=== PATIENT | male | born 1955 | race Caucasian/White ===

== ENCOUNTER 2019-11-07 17:19 | Emergency (ER) | payer MEDICARE, OTHER, SELFPAY ==
[2019-11-07 17:30] VITALS: BP 162/70; PULSE 56; RESP 28; TEMP 34.9; O2SAT 97; BMI 32.8
--- NOTE | 2019-11-07 17:38 | DI.RAD.S_ITS ---
PROCEDURE: XR CHEST 1V INDICATIONS: shortness of breath TECHNIQUE: One view of the chest was acquired. COMPARISON: None. FINDINGS: Surgical changes and devices: None. Lungs and pleura: Lungs are clear. No pleural effusions or pneumothorax. Mediastinum: Mediastinal contours appear normal. Heart size is normal. Bones and chest wall: No suspicious bony lesions. Overlying soft tissues appear unremarkable. IMPRESSION: No evidence acute pulmonary process. Dictated by: Mars Jaramillo M.D. on 11/07/2019 at 20:08 Approved by: Mars Jaramillo M.D. on 11/07/2019 at 20:08
--- NOTE | 2019-11-07 18:17 | PC.NURSE ---
Addendum entered by Shannon Urias R.N. 11/07/19 19:06: worked out in the gymn, didnt eat, having early dinner the restaurant , sudden felt tired. Original Note: sudden onset of shaking, skin pale, confusion.
[2019-11-07 18:32] VITALS: BP 206/86; PULSE 81; RESP 28; TEMP 36.7; O2SAT 100
[2019-11-07 18:32] LABS: Add Manual Diff / Slide Review NO; Basophils Absolute Auto 0 /uL (0-100); Basophils Percent Auto 0.4 % (0-2); Eosinophils Absolute Auto 300 /uL (0-450); Eosinophils Percent Auto 2.7 % (2-4); Hematocrit 47.2 % (41-53); Hemoglobin 16.2 g/dL (13.5-17.5); Lymphocytes Absolute Auto 4400 /uL (1100-4500); Lymphocytes Percent Auto 42.7 % (25-40); Mean Corpuscular HGB Conc 34.3 % (30-36); Mean Corpuscular Hemoglobin 30.6 PG (26-34); Mean Corpuscular Volume 89.2 fL (80-100); Monocytes Absolute Auto 500 /uL (0-900); Monocytes Percent Auto 4.9 % (3-14); Neutrophils Absolute Auto 5100 /uL (1500-7000); Neutrophils Percent Auto 49.3 % (50-75); Platelet Count 143 X10^3/uL (150-400); Red Cell Distribution Width 14.5 % (11.6-14.8); White Blood Cell Count 10.3 X10^3/uL (4.5-11.0)
--- NOTE | 2019-11-07 18:38 | ED_ITS ---
HPI - General Adult General Chief complaint: Shortness of Breath/Dyspnea Stated complaint: shakey, tingly, faint, heart attack 6 months ago Time Seen by Provider: 11/07/19 18:36 Source: patient and family Mode of arrival: Wheelchair Limitations: no limitations History of Present Illness HPI narrative: This is a 64-year-old male comes to the emergency department with complaint of feeling shaky, pale and off. Patient was sitting down to dinner about 4:30 p.m. at a restaurant. He had not eaten yet. His last meal about 10:00 a.m. in the morning. Patient started feeling very shaky and did not feel well. He has described that he felt almost like he was really stone. He feels off. He feels cold. His family states that he was able to get up and walk out of the restaurant. He did have any syncope but they felt like he was not always alert. Patient denies any headache, he states maybe some mild chest pressure on repeated questioning, feels short of breath, he denies any nausea or vomiting. No issues with bowel movements or urination. He describes his weakness as all over. Denies any right or left-sided weakness. Family has not noted any facial droop. Patient does have a history of [place] and has had cardiac stents. He is on medication for blood pressure, cholesterol and spironolactone. Patient is on aspirin and Brilinta. Patient states he had a ulnar nerve surgery 15 years ago and ankle surgery but no other surgeries besides his cardiac stents. Patient and family state that there has been discussion about a pacemaker from a heart rate but his edge kitter has not felt that they should proceed at this time. Related Data Allergies Allergy/AdvReac Type Severity Reaction Status Date / Time No Known Drug Allergies Allergy Verified 11/07/19 17:38 Review of Systems Review of Systems ROS Unobtainable: All systems reviewed & are unremarkable except as noted in HPI and below Patient History Social History (Updated 11/07/19 @ 19:21 by Eloise Bcukley DO) household members: spouse Smoking Status: Never smoker substance use type: does not use Exam Narrative Exam Narrative: GEN: Obese male, alert and oriented x 3, patient appears to be in mild distress. HEENT: Atraumatic, pupils are equal round reactive to light, extraocular movements are intact, nares are clear. Throat is clear without any exudates, erythema, tonsillar enlargement or uvular deviation HEART: Regular rate and rhythm without murmur, clicks, rubs. LUNGS:Lungs clear to auscultation, no wheezes, rales, crackles, chest moves symmetrically ABD:bowel sounds normal, soft, non-tender, no guarding, rebound, rigidity, no masses noted, no hepatosplenomegaly :No CVA tenderness MSCL: Non-tender, no muscle atrophy, muscles strength 5/5 upper and lower extremities, full range of motion, gait not tested. NEURO:CN 2-12 intact, sensation normal, finger nose finger test normal, heel leon test normal, patient has mild generalized tremor on exam. SKIN: No rash, no petechiae. Initial Vital Signs Initial Vital Signs: Vital Signs Temperature 94.8 F L 11/07/19 17:30 Pulse Rate 56 L 11/07/19 17:30 Respiratory Rate 28 H 11/07/19 17:30 Blood Pressure 162/70 H 11/07/19 17:30 Pulse Oximetry 97 11/07/19 17:30 Scores GCS Leopoldo coma scale eye opening: Spontaneous [place] coma scale verbal response: Orientated Leopoldo coma scale motor response: Obey commands Leopoldo coma scale total score: 15 NIH Stroke Scale Level of Conciousness: Alert, keenly responsive Ask month/age: Answers both questions correctly. Open/close eyes, close hand: Performs both tasks correctly Best gaze horizontal: Normal Facial palsy: Normal symetrical movement Left arm drift: No drift for full 10 sec Right arm drift: No drift for full 10 sec Left leg drift: No drift for full 10 sec Right leg drift: No drift for full 10 sec Limb ataxia: Absent Sensory on face/arms/legs: Normal, no sensory loss Best language: No aphasia, normal Dysarthria: Normal Extinction or inattention: No abnormality Course Orders Ordered: ED Orders 11/07/19 19:13 CT head/brain wo con Stat 11/07/19 19:30 Procalcitonin Stat 11/07/19 19:34 EKG-12 Lead Stat 11/07/19 20:25 Blood Culture Stat Troponin & CK Cardiac Panel Stat 11/07/19 22:00 Urinalysis and Microscopic Stat Urine Drug Screen, Rapid Stat Discontinued Medications Sodium Chloride (Normal Saline 0.9%) 1,000 mls @ 1,000 mls/hr IV BOLUS ONE Stop: 11/07/19 19:57 Last Infusion: 11/07/19 20:22 Dose: 1,000 mls/hr Documented by: Admin: 11/07/19 19:00 Dose: 1,000 mls/hr Documented by: BONILLA Sodium Chloride (Normal Saline 0.9%) 1,000 mls @ 1,000 mls/hr IV BOLUS ONE Stop: 11/07/19 21:50 Last Infusion: 11/07/19 23:01 Dose: 1,000 mls/hr Documented by: Admin: 11/07/19 22:02 Dose: 1,000 mls/hr Documented by: BONILLA Nitroglycerin (Nitrostat) 0.4 mg SL [id number] PRN PRN Reason: Chest Pain Vital Signs Vital signs: Vital Signs - 8 hr 11/07/19 19:18 11/07/19 20:00 11/07/19 20:30 Pulse Rate 80 83 67 Respiratory Rate 21 22 17 Blood Pressure [Left Arm] 182/80 H 187/74 H 200/82 H Pulse Oximetry 100 100 100 11/07/19 21:22 Pulse Rate 62 Respiratory Rate 15 Blood Pressure [Left Arm] 186/77 H Pulse Oximetry 100 Medical Decision Making Lab Data Lab results reviewed: Yes I reviewed the patient's lab results. Result diagrams: 11/07/19 18:08 11/07/19 18:08 Labs: Lab Results 11/07/19 11/07/19 11/07/19 Range/Units 18:08 18:08 18:08 WBC 10.3 (4.5-11.0) X10^3/uL RBC 5.30 (4.5-5.9) X10^6/uL Hgb 16.2 (13.5-17.5) g/dL Hct 47.2 (41-53) % MCV 89.2 (80-100) fL MCH 30.6 (26-34) PG MCHC 34.3 (30-36) % RDW 14.5 (11.6-14.8) % Plt Count 143 L (150-400) X10^3/uL Neut % (Auto) 49.3 L (50-75) % Lymph % (Auto) 42.7 H (25-40) % [place] % (Auto) 4.9 (3-14) % Eos % (Auto) 2.7 (2-4) % Baso % (Auto) 0.4 (0-2) % Neut # (Auto) 5100 (7962-9749) /uL Lymph # (Auto) 4400 (8228-5602) /uL [place] # (Auto) 500 (0-900) /uL Eos # (Auto) 300 (0-450) /uL Baso # (Auto) 0 (0-100) /uL Sodium 138 (137-145) mmol/L Potassium 4.4 (3.4-5.1) mmol/L Chloride 99 (98-107) mmol/L Carbon Dioxide 22 (22-32) mmol/L BUN 25 H (9-20) mg/dL Creatinine 1.30 H (0.66-1.25) mg/dL Estimated GFR 55.4 L (>60) mL/min BUN/Creatinine Ratio 19.2 (6-22) Glucose 181 H (80-110) mg/dL Lactate 2.8 H (0.7-2.1) mmol/L Calcium 10.6 H (8.4-10.2) mg/dL Total Bilirubin 1.2 (0.2-1.3) mg/dL AST 33 (17-59) IU/L ALT 27 (<50) IU/L Alkaline Phosphatase 52 (38-126) U/L Total Creatine Kinase (55-170) U/L CK-MB (CK-2) (<2.37) ng/mL CK-MB (CK-2) Rel Index (1.5-5.0) % Troponin I (0.01-0.034) ng/mL Total Protein 9.8 H* (6.3-8.2) g/dL Albumin 5.7 H (3.5-5.0) g/dL Globulin 4.1 (1.7-4.1) g/dL Albumin/Globulin Ratio 1.4 (1.0-2.8) Procalcitonin (<0.5) ng/mL Urine Color Urine Appearance Urine pH (4.5-8.0) Ur Specific [place] (1.000-1.035) Urine Protein (Negative) Urine Glucose (UA) (Negative) g/dL Urine Ketones (NEGATIVE) Urine Occult Blood (Negative) Urine Nitrate (Negative) Urine Bilirubin (NEGATIVE) Urine Urobilinogen (0.2) E.U./dL Ur Leukocyte Esterase (NEGATIVE) Urine RBC (0-5/HPF) Urine WBC (0-5/HPF) Urine Bacteria (None) Ur Culture Indicated? Micro UA Comment U Opiates 300ng/mL cut (Negative) Ur Oxycodone Screen (Negative) Urine Methadone Screen (Negative) Ur Barbiturates Screen (Negative) U Tricyclic Antidepress (Negative) Ur Phencyclidine Scrn (Negative) Ur Amphetamines Screen (Negative) U Methamphetamines Scrn (Negative) Ur MDMA Scrn (Ecstasy) (Negative) U Benzodiazepines Scrn (Negative) Urine Cocaine Screen (Negative) U Marijuana (THC) Screen (Negative) Influenza A (RT-PCR) (NEGATIVE) Influenza B (RT-PCR) (NEGATIVE) 11/07/19 11/07/19 11/07/19 Range/Units 18:08 18:08 19:30 WBC (4.5-11.0) X10^3/uL RBC (4.5-5.9) X10^6/uL Hgb (13.5-17.5) g/dL Hct (41-53) % MCV (80-100) fL MCH (26-34) PG MCHC (30-36) % RDW (11.6-14.8) % Plt Count (150-400) X10^3/uL Neut % (Auto) (50-75) % Lymph % (Auto) (25-40) % [place] % (Auto) (3-14) % Eos % (Auto) (2-4) % Baso % (Auto) (0-2) % Neut # (Auto) (6526-3101) /uL Lymph # (Auto) (3587-7140) /uL [place] # (Auto) (0-900) /uL Eos # (Auto) (0-450) /uL Baso # (Auto) (0-100) /uL Sodium (137-145) mmol/L Potassium (3.4-5.1) mmol/L Chloride (98-107) mmol/L Carbon Dioxide (22-32) mmol/L BUN (9-20) mg/dL Creatinine (0.66-1.25) mg/dL Estimated GFR (>60) mL/min BUN/Creatinine Ratio (6-22) Glucose (80-110) mg/dL Lactate (0.7-2.1) mmol/L Calcium (8.4-10.2) mg/dL Total Bilirubin (0.2-1.3) mg/dL AST (17-59) IU/L ALT (<50) IU/L Alkaline Phosphatase (38-126) U/L Total Creatine Kinase 146 (55-170) U/L CK-MB (CK-2) 2.43 H (<2.37) ng/mL CK-MB (CK-2) Rel Index 1.7 (1.5-5.0) % Troponin I < 0.012 (0.01-0.034) ng/mL Total Protein (6.3-8.2) g/dL Albumin (3.5-5.0) g/dL Globulin (1.7-4.1) g/dL Albumin/Globulin Ratio (1.0-2.8) Procalcitonin < 0.05 (<0.5) ng/mL Urine Color Urine Appearance Urine pH (4.5-8.0) Ur Specific [place] (1.000-1.035) Urine Protein (Negative) Urine Glucose (UA) (Negative) g/dL Urine Ketones (NEGATIVE) Urine Occult Blood (Negative) Urine Nitrate (Negative) Urine Bilirubin (NEGATIVE) Urine Urobilinogen (0.2) E.U./dL Ur Leukocyte Esterase (NEGATIVE) Urine RBC (0-5/HPF) Urine WBC (0-5/HPF) Urine Bacteria (None) Ur Culture Indicated? Micro UA Comment U Opiates 300ng/mL cut (Negative) Ur Oxycodone Screen (Negative) Urine Methadone Screen (Negative) Ur Barbiturates Screen (Negative) U Tricyclic Antidepress (Negative) Ur Phencyclidine Scrn (Negative) Ur Amphetamines Screen (Negative) U Methamphetamines Scrn (Negative) Ur MDMA Scrn (Ecstasy) (Negative) U Benzodiazepines Scrn (Negative) Urine Cocaine Screen (Negative) U Marijuana (THC) Screen (Negative) Influenza A (RT-PCR) Flu a negative (NEGATIVE) Influenza B (RT-PCR) Flu b negative (NEGATIVE) 11/07/19 11/07/19 11/07/19 Range/Units 19:40 20:25 22:00 WBC (4.5-11.0) X10^3/uL RBC (4.5-5.9) X10^6/uL Hgb (13.5-17.5) g/dL Hct (41-53) % MCV (80-100) fL MCH (26-34) PG MCHC (30-36) % RDW (11.6-14.8) % Plt Count (150-400) X10^3/uL Neut % (Auto) (50-75) % Lymph % (Auto) (25-40) % [place] % (Auto) (3-14) % Eos % (Auto) (2-4) % Baso % (Auto) (0-2) % Neut # (Auto) (1638-6295) /uL Lymph # (Auto) (4043-1103) /uL [place] # (Auto) (0-900) /uL Eos # (Auto) (0-450) /uL Baso # (Auto) (0-100) /uL Sodium (137-145) mmol/L Potassium (3.4-5.1) mmol/L Chloride (98-107) mmol/L Carbon Dioxide (22-32) mmol/L BUN (9-20) mg/dL Creatinine (0.66-1.25) mg/dL Estimated GFR (>60) mL/min BUN/Creatinine Ratio (6-22) Glucose (80-110) mg/dL Lactate 2.7 H (0.7-2.1) mmol/L Calcium (8.4-10.2) mg/dL Total Bilirubin (0.2-1.3) mg/dL AST (17-59) IU/L ALT (<50) IU/L Alkaline Phosphatase (38-126) U/L Total Creatine Kinase 114 (55-170) U/L CK-MB (CK-2) 1.97 (<2.37) ng/mL CK-MB (CK-2) Rel Index 1.7 (1.5-5.0) % Troponin I 0.013 (0.01-0.034) ng/mL Total Protein (6.3-8.2) g/dL Albumin (3.5-5.0) g/dL Globulin (1.7-4.1) g/dL Albumin/Globulin Ratio (1.0-2.8) Procalcitonin (<0.5) ng/mL Urine Color Yellow Urine Appearance Clear Urine pH 6.0 (4.5-8.0) Ur Specific [place] 1.020 (1.000-1.035) Urine Protein Negative (Negative) Urine Glucose (UA) Negative (Negative) g/dL Urine Ketones Trace H (NEGATIVE) Urine Occult Blood Negative (Negative) Urine Nitrate Negative (Negative) Urine Bilirubin Negative (NEGATIVE) Urine Urobilinogen 0.2 (0.2) E.U./dL Ur Leukocyte Esterase Negative (NEGATIVE) Urine RBC None seen (0-5/HPF) Urine WBC None seen (0-5/HPF) Urine Bacteria None seen (None) Ur Culture Indicated? Cult not indicated Micro UA Comment Microscopic normal U Opiates 300ng/mL cut (Negative) Ur Oxycodone Screen (Negative) Urine Methadone Screen (Negative) Ur Barbiturates Screen (Negative) U Tricyclic Antidepress (Negative) Ur Phencyclidine Scrn (Negative) Ur Amphetamines Screen (Negative) U Methamphetamines Scrn (Negative) Ur MDMA Scrn (Ecstasy) (Negative) U Benzodiazepines Scrn (Negative) Urine Cocaine Screen (Negative) U Marijuana (THC) Screen (Negative) Influenza A (RT-PCR) (NEGATIVE) Influenza B (RT-PCR) (NEGATIVE) 11/07/19 Range/Units 22:00 WBC (4.5-11.0) X10^3/uL RBC (4.5-5.9) X10^6/uL Hgb (13.5-17.5) g/dL Hct (41-53) % MCV (80-100) fL MCH (26-34) PG MCHC (30-36) % RDW (11.6-14.8) % Plt Count (150-400) X10^3/uL Neut % (Auto) (50-75) % Lymph % (Auto) (25-40) % [place] % (Auto) (3-14) % Eos % (Auto) (2-4) % Baso % (Auto) (0-2) % Neut # (Auto) (4281-0976) /uL Lymph # (Auto) (1499-7373) /uL [place] # (Auto) (0-900) /uL Eos # (Auto) (0-450) /uL Baso # (Auto) (0-100) /uL Sodium (137-145) mmol/L Potassium (3.4-5.1) mmol/L Chloride (98-107) mmol/L Carbon Dioxide (22-32) mmol/L BUN (9-20) mg/dL Creatinine (0.66-1.25) mg/dL Estimated GFR (>60) mL/min BUN/Creatinine Ratio (6-22) Glucose (80-110) mg/dL Lactate (0.7-2.1) mmol/L Calcium (8.4-10.2) mg/dL Total Bilirubin (0.2-1.3) mg/dL AST (17-59) IU/L ALT (<50) IU/L Alkaline Phosphatase (38-126) U/L Total Creatine Kinase (55-170) U/L CK-MB (CK-2) (<2.37) ng/mL CK-MB (CK-2) Rel Index (1.5-5.0) % Troponin I (0.01-0.034) ng/mL Total Protein (6.3-8.2) g/dL Albumin (3.5-5.0) g/dL Globulin (1.7-4.1) g/dL Albumin/Globulin Ratio (1.0-2.8) Procalcitonin (<0.5) ng/mL Urine Color Urine Appearance Urine pH (4.5-8.0) Ur Specific [place] (1.000-1.035) Urine Protein (Negative) Urine Glucose (UA) (Negative) g/dL Urine Ketones (NEGATIVE) Urine Occult Blood (Negative) Urine Nitrate (Negative) Urine Bilirubin (NEGATIVE) Urine Urobilinogen (0.2) E.U./dL Ur Leukocyte Esterase (NEGATIVE) Urine RBC (0-5/HPF) Urine WBC (0-5/HPF) Urine Bacteria (None) Ur Culture Indicated? Micro UA Comment U Opiates 300ng/mL cut Negative (Negative) Ur Oxycodone Screen Negative (Negative) Urine Methadone Screen Negative (Negative) Ur Barbiturates Screen Negative (Negative) U Tricyclic Antidepress Negative (Negative) Ur Phencyclidine Scrn Negative (Negative) Ur Amphetamines Screen Negative (Negative) U Methamphetamines Scrn Negative (Negative) Ur MDMA Scrn (Ecstasy) Negative (Negative) U Benzodiazepines Scrn Negative (Negative) Urine Cocaine Screen Negative (Negative) U Marijuana (THC) Screen Positive H (Negative) Influenza A (RT-PCR) (NEGATIVE) Influenza B (RT-PCR) (NEGATIVE) Imaging Data Chest x-ray: Radiologist's Impression: [address] [address] XRay Report Signed Patient: Amber Oliva R#: [id number] : [id number] Age/Sex: 64 / MDate of Service: 11/07/19 Loc: ED Accession Number: [id number] Procedure: XR chest 1V Ordering Provider: Itz Sarmiento MD PROCEDURE: XR CHEST 1V INDICATIONS: shortness of breath TECHNIQUE: One view of the chest was acquired. COMPARISON: None. FINDINGS: Surgical changes and devices: None. Lungs and pleura: Lungs are clear. No pleural effusions or pneumothorax. Mediastinum: Mediastinal contours appear normal. Heart size is normal. Bones and chest wall: No suspicious bony lesions. Overlying soft tissues appear unremarkable. IMPRESSION: No evidence acute pulmonary process. Dictated by: Mars Jaramillo M.D. on 11/07/2019 at 20:08 Approved by: Mars Jaramillo M.D. on 11/07/2019 at 20:08 CT scan - head: Radiologist's Impression: [place] [address] CT Scan Report Signed Patient: Amber Oliva HMR#: [id number] : [id number] Age/Sex: 64 / MDate of Service: 11/07/19 Loc: ED Accession Number: [id number] Procedure: CT head/brain wo con Ordering Provider: Eloise Buckley D.O. PROCEDURE: CT HEAD/BRAIN WO CON INDICATIONS: feeling off, shaky and pale. No LOC TECHNIQUE: Noncontrast 4.5 mm thick angled axial sections acquired from the foramen magnum to the vertex, with coronal and sagittal reformats. For radiation dose reduction, the following was used: automated exposure control, adjustment of mA and/or kV according to patient size. COMPARISON: None. FINDINGS: Image quality: Excellent. CSF spaces: Basal cisterns are patent. No extra-axial fluid collections. Ventricles are normal in size and shape. Brain: No midline shift. No intracranial masses or hemorrhage. Dee-white matter interface is normal. Skull and face: Calvarium and visualized facial bones are intact, without suspicious lesions. Sinuses: Visualized sinuses and mastoids are clear. IMPRESSION: Unremarkable head CT. No evidence acute stroke, hemorrhage, or mass. Dictated by: Mars Jaramillo M.D. on 11/07/2019 at 20:18 Approved by: Mars Jaramillo M.D. on 11/07/2019 at 20:18 ECG Data Attestation: I personally reviewed and interpreted this ECG as follows: Prior ECG tracings: not available for review Interpretation: Sinus bradycardia rate of 57 P are 159 QRS of 152 and QTC of 482. Right bundle branch block. Patient has some mild motion artifact in [address] elevation appreciated. No prior EKGs available. EKG #2, sinus rhythma, RBBB. Heart rate is 82, J LUIS is 172 QRS is 153 and QTC is 491. No ST elevation appreciated. Patient has T-wave is inverted in V3 appears more flattened in V2 no other ST changes are appreciated. MDM Narrative Medical decision making narrative: Patient initially has non-focal exam. I nitial temperature was 94? F but this was temporal and not reconfirmed orally or rectally. Patient is shaky. He seems sort of slow in his answers. Family after patient was in the department for a period of time realized that they had edible brownies in the refrigerator and did ask the patient if he had had anything eat and he indicated that he had had 1. Patient's family states that these are quite strong. The patient does not normally partake of any marijuana and did not realize they were audible brownies. Urine drug testing is positive for THC. Head CT, chest x-ray and lab work showed elevated lactate which had minimally improved with fluids. After a 2nd L patient is feeling much better although he still feels ?stoned.? He is able to stand and ambulate and feels safe to return home. He did have 2 EKGs which showed change in V3 on repeat and repeat troponin which were negative. Urine was negative for infection. Platelets are 143. Patient has been hypertensive during his stay. We did discuss observation but patient and his family feel comfortable returning home at this time. We discussed a low threshold to return and strict return precautions. Discharge Plan Departure Patient Disposition: Home Clinical Impression: Marijuana intoxication Discharge Date/Time: 11/07/19 23:06 Activity Restrictions/Additional Instructions: Follow up with your physician for recheck. Avoid ingesting any edibles in the future unless intending to do so. Label edibles at home. Return to the ER for any fevers greater 100.4 F, new alterations in mental status, new chest pain, shortness of breath, lightheadedness, nausea or vomiting, new shortness of breath, passing out, weakness numbness or other new or concerning symptoms.
[2019-11-07 18:40] LABS: Alanine Aminotransferase 27 IU/L (<50); Albumin 5.7 g/dL (3.5-5.0); Albumin Globulin Ratio 1.4 (1.0-2.8); Alkaline Phosphatase 52 U/L (38-126); Aspartate Aminotransferase 33 IU/L (17-59); BUN Creatinine Ratio 19.2 (6-22); Bilirubin Total 1.2 mg/dL (0.2-1.3); Blood Urea Nitrogen 25 mg/dL (9-20); Calcium 10.6 mg/dL (8.4-10.2); Carbon Dioxide 22 mmol/L (22-32); Chloride 99 mmol/L (98-107); Estimated Glomerular Filt Rate 55.4 mL/min (>60); Globulin 4.1 g/dL (1.7-4.1); Glucose 181 mg/dL (80-110); HEMOLYSIS < 15 (0-50); Potassium 4.4 mmol/L (3.4-5.1); Sodium 138 mmol/L (137-145)
[2019-11-07 18:41] LABS: Lactate (Lactic Acid) 2.8 mmol/L (0.7-2.1)
[2019-11-07 18:44] LABS: Total Protein 9.8 g/dL (6.3-8.2)
[2019-11-07 18:56] LABS: Influenza A - CEPHEID Flu A NEGATIVE (NEGATIVE); Influenza B - CEPHEID Flu B NEGATIVE (NEGATIVE)
[2019-11-07] MEDS: SODIUM CHLORIDE 0.9% 1,000 ML 1000 ML IV ×2 (19:00→22:02)
[2019-11-07 19:11] LABS: Creatine Kinase 146 U/L (55-170)
--- NOTE | 2019-11-07 19:13 | DI.CT.S_ITS ---
PROCEDURE: CT HEAD/BRAIN WO CON INDICATIONS: feeling off, shaky and pale. No LOC TECHNIQUE: Noncontrast 4.5 mm thick angled axial sections acquired from the foramen magnum to the vertex, with coronal and sagittal reformats. For radiation dose reduction, the following was used: automated exposure control, adjustment of mA and/or kV according to patient size. COMPARISON: None. FINDINGS: Image quality: Excellent. CSF spaces: Basal cisterns are patent. No extra-axial fluid collections. Ventricles are normal in size and shape. Brain: No midline shift. No intracranial masses or hemorrhage. Dee-white matter interface is normal. Skull and face: Calvarium and visualized facial bones are intact, without suspicious lesions. Sinuses: Visualized sinuses and mastoids are clear. IMPRESSION: Unremarkable head CT. No evidence acute stroke, hemorrhage, or mass. Dictated by: Mars Jaramillo M.D. on 11/07/2019 at 20:18 Approved by: Mars Jaramillo M.D. on 11/07/2019 at 20:18
[2019-11-07 19:18] VITALS: BP 182/80; PULSE 80; RESP 21; O2SAT 100
[2019-11-07 19:24] LABS: Troponin I < 0.012 ng/mL (0.01-0.034)
[2019-11-07 19:26] LABS: CKMB % Relative Index 1.7 % (1.5-5.0); Creatine Kinase MB 2.43 ng/mL (<2.37)
[2019-11-07 20:00] VITALS: BP 187/74; PULSE 83; RESP 22; O2SAT 100
[2019-11-07 20:11] LABS: Procalcitonin < 0.05 ng/mL (<0.5)
[2019-11-07 20:21] LABS: Reflexed Lactate in 2 Hours Y
[2019-11-07 20:30] VITALS: BP 200/82; PULSE 67; RESP 17; O2SAT 100
[2019-11-07 20:32] LABS: Lactate 2HR (Lactic Acid Rflx) 2.7 mmol/L (0.7-2.1)
--- NOTE | 2019-11-07 20:36 | PC.NURSE ---
Pt states just realized that pt may have eaten a pot brownie that was in fridge, pt endorses eating a sweet in fridge but didn't realize it had pot in it. Pt states that was the pot brownie was the only sweet thing in fridge so pt must have eaten it. Pt states he does feel like he is stoned. Dr. Buckley updated.
[2019-11-07 20:43] LABS: Creatine Kinase 114 U/L (55-170)
[2019-11-07 20:56] LABS: Troponin I 0.013 ng/mL (0.01-0.034)
[2019-11-07 20:59] LABS: CKMB % Relative Index 1.7 % (1.5-5.0); Creatine Kinase MB 1.97 ng/mL (<2.37)
[2019-11-07 21:22] VITALS: BP 186/77; PULSE 62; RESP 15; O2SAT 100
[2019-11-07 22:07] LABS: Bacteria Urine None Seen; RBC Urine None Seen (0-5/HPF); WBC Urine None Seen (0-5/HPF)
[2019-11-07 22:10] LABS: Appearance Urine UA CLEAR; Bilirubin Urine UA NEGATIVE (NEGATIVE); Color Urine UA YELLOW; Glucose Urine UA NEGATIVE (Negative); Ketones Urine UA TRACE (NEGATIVE); Leukocyte Esterase Urine UA NEGATIVE (NEGATIVE); Nitrite Urine UA NEGATIVE (Negative); Occult Blood Urine UA NEGATIVE (Negative); Protein Urine UA NEGATIVE (Negative); Urobilinogen Urine UA 0.2 E.U./dL (0.2)
[2019-11-07 22:11] LABS: Culture Indicated Urine Cult Not Indicated; Urine Comments Microscopic Normal
[2019-11-07 22:12] LABS: UR Morphine/Opiate cutoff 300 Negative (Negative); Ur Creatinine Normal (Normal); Ur Specific Gravity Normal (Normal); Urine Amphetamines Negative (Negative); Urine Cocaine Negative (Negative); Urine Tetrahydrocannabinol Positive (Negative); Urine pH Normal (Normal)
[2019-11-07 22:13] LABS: Urine Barbiturates Negative (Negative); Urine Benzodiazepines Negative (Negative); Urine MDMA Negative (Negative); Urine Methadone Negative (Negative); Urine Methamphetamines Negative (Negative); Urine Oxycodone Negative (Negative); Urine Phencyclidine Negative (Negative); Urine Tricyclic Antidepressant Negative (Negative)
== END 2019-11-07 23:06 | disposition home or self-care (01) ==
PROVIDERS: Emergency Medicine; Emergency Provider Emergency Medicine
DX: F12.929 Cannabis use, unspecified with intoxication, unspecified (principal); R06.02 Shortness of breath; R00.1 Bradycardia, unspecified
CPT/HCPCS: 36415; 70450; 71045; 80053; 80305; 81001; 82550; 82553; 83605; 84145; 84484; 85025; 87040; 87502; 93005; 96360; 96361; 99285

== ENCOUNTER 2023-05-06 11:15 | Emergency (ER) | payer MEDICARE, OTHER, SELFPAY ==
[2023-05-06] VITALS (8 sets, daily range): BP systolic 158–201; BP diastolic 70–83; PULSE 45–67; RESP 12–19; TEMP 37; O2SAT 97–100; BMI 34.7
--- NOTE | 2023-05-06 11:26 | DI.US.S_ITS ---
PROCEDURE: US PERIPH VENOUS LOW EXTREM RT INDICATIONS: swelling R calf, no injury, sent for DVT TECHNIQUE: Real-time imaging, as well as color and pulse Doppler interrogation, were performed of the lower extremity deep veins from the inguinal ligament to the popliteal fossa. COMPARISON: None. FINDINGS: The common femoral, femoral and popliteal veins are normally compressible, and free of intraluminal thrombus. Color and pulse Doppler demonstrate normal phasic intraluminal flow. There is normal augmentation response to distal compression maneuver. IMPRESSION: No deep venous thrombosis in the visualized lower extremity. Dictated by: Gregorio Dean M.D. on 05/06/2023 at 12:24 Approved by: Gregorio Dean M.D. on 05/06/2023 at 12:24
--- NOTE | 2023-05-06 11:26 | ED.GENADULT ---
HPI - General Adult General Chief complaint: Neuro Symptoms/Deficit Stated complaint: poss stroke/blood clots in leg/ greyed vision RT Time Seen by Provider: 05/06/23 11:19 History of Present Illness HPI narrative: 67-year-old male nonsmoker with history of hypertension and hyperlipidemia presents with his in the chief complaint of right lower extremity swelling over the past week or 2. He states that he is had no trauma or injury, denies long distance travel or history of blood clot. He had been seen by his primary care provider yesterday who measured it as slightly greater than 2 cm larger circumference than the left side. There is no redness, warmth or red streaks. He has had no fever or chills. Denies chest pain or shortness of breath. He is had no cough. Furthermore, about 10 days ago he had a relatively brief episode in which the vision in his right eye became grade and has since completely resolved. He did have what sounds like floaters or flashers briefly while it was coming back to normal. He denies any other neurologic symptoms such as headache, double vision, trouble with speech or balance, no extremity numbness, tingling or weakness Related Data Home Medications Medication Instructions Recorded Confirmed aspirin 81 mg capsule 81 mg PO DAILY 05/06/23 05/06/23 empagliflozin 25 mg-linagliptin 5 1 tab PO DAILY 05/06/23 05/06/23 mg tablet (Glyxambi) losartan 25 mg tablet 25 mg PO BID 05/06/23 05/06/23 metformin 1,000 mg tablet 1,000 mg PO BID 05/06/23 05/06/23 nitroglycerin 0.4 mg sublingual 0.4 mg sublingual angina 05/06/23 tablet rosuvastatin 20 mg tablet 20 mg PO ONCE PM 05/06/23 05/06/23 Allergies Allergy/AdvReac Type Severity Reaction Status Date / Time No Known Drug Allergies Allergy Verified 05/06/23 11:31 Review of Systems Review of Systems Narrative: GENERAL: Denies chills, fatigue, malaise, fever, sweats. HEENT: Denies sinus pain, ear pain, sore throat, difficulty swallowing, dizziness. RESPIRATORY: Denies dyspnea, cough, wheezing, hemoptysis, sputum. CARDIOVASCULAR: Denies chest pain, palpitations, orthopnea, edema, GASTROINTESTINAL: Denies nausea, vomiting, abdominal pain, diarrhea, constipation, melena. : Denies dysuria, frequency, incontinence, hematuria, urinary retention. MUSCULOSKELETAL: See HPI SKIN: See HPI NEUROLOGIC: See HPI PSYCHIATRIC: No concerning psychosocial issues. 12 point review of systems is negative except for those stated above Patient History Social History household members: spouse Smoking Status: Never smoker substance use type: does not use Smoking Status: Never smoker Exam Narrative Exam Narrative: GENERAL: [67] year old patient appears stated age. Well-developed patient, in mild distress. HEAD: Atraumatic. Normocephalic. EYES: Pupils equal round and reactive. Extraocular motions intact. No scleral icterus. No injection or drainage. ENT: Nose without bleeding, purulent drainage. Throat without erythema, tonsillar hypertrophy or exudate. Airway patent. NECK: Trachea midline. Non tender CARDIOVASCULAR: Regular rate and rhythm without murmurs, gallops, or rubs. RESPIRATORY: Clear to auscultation. Breath sounds equal bilaterally. No wheezes, rales, or rhonchi. GASTROINTESTINAL: Abdomen soft, non-tender, nondistended. EXTREMITIES: Right lower extremity with mild calf swelling, no redness or warmth, no fluctuance or induration, no lymphangitis, no breaks in the skin BACK: Nontender without deformity or crepitance. No flank tenderness. NEURO: AOx3. SKIN: No rash or erythema of visible areas NIH Stroke Scale 1a. LOC: Patient is alert and keenly responsive (0) 1b. LOC Questions: Patient answers both LOC questions accurately (0) 1c. LOC Commands: Patient performs both tasks correctly (0) 2. Best Gaze: Normal (0) 3. Visual: No visual loss (0) 4. Facial palsy: Normal symmetrical movements (0) 5. Motor arm: No drift (0) 6. Motor leg: No drift (0) 7. Limb ataxia: Absent (0) 8. Sensory: Normal (0) 9. Best language: No aphasia; normal (0) 10. Dysarthria: Normal (0) 11. Extinction and inattention: No abnormality (0) NIHSS: 0 Initial Vital Signs Initial Vital Signs: Vital Signs Temperature 98.6 F 05/06/23 11:26 Pulse Rate 57 L 05/06/23 11:26 Respiratory Rate 16 05/06/23 11:26 Blood Pressure 201/83 H 05/06/23 11:26 Pulse Oximetry 97 05/06/23 11:26 Oxygen Delivery Method Room Air 05/06/23 11:26 Course Orders Ordered: ED Orders 05/06/23 11:26 periph venous low extrem rt Stat 05/06/23 11:27 CT head/brain wo con Stat 05/06/23 11:28 EKG-12 Lead Stat 05/06/23 11:59 Complete Blood Count AUTO DIFF Stat Comprehensive Metabolic Panel Stat Vital Signs Vital signs: Vital Signs - 8 hr 05/06/23 11:26 05/06/23 11:39 05/06/23 11:42 Temperature 98.6 F Pulse Rate 57 L 67 Respiratory Rate 16 Blood Pressure 201/83 H 158/70 H Pulse Oximetry 97 100 Oxygen Delivery Method Room Air 05/06/23 11:42 05/06/23 12:00 Temperature Pulse Rate 49 L 51 L Respiratory Rate 17 19 Blood Pressure Pulse Oximetry 99 99 Oxygen Delivery Method Room Air Medical Decision Making Lab Data 05/06/23 11:59 05/06/23 11:59 Labs: Lab Results 05/06/23 05/06/23 Range/Units 11:59 11:59 WBC 8.0 (4.5-11.0) X10^3/uL RBC 4.53 (4.5-5.9) X10^6/uL Hgb 14.1 (13.5-17.5) g/dL Hct 41.2 (41-53) % MCV 91.1 (80-100) fL MCH 31.1 (26-34) PG MCHC 34.1 (30-36) % RDW 14.8 (11.6-14.8) % Plt Count 149 L (150-400) X10^3/uL Neut % (Auto) 53.5 (50-75) % Lymph % (Auto) 36.7 (25-40) % [place] % (Auto) 7.2 (3-14) % Eos % (Auto) 2.2 (2-4) % Baso % (Auto) 0.4 (0-2) % Neut # (Auto) 4300 (9029-3764) /uL Lymph # (Auto) 2900 (5528-4477) /uL [place] # (Auto) 600 (0-900) /uL Eos # (Auto) 200 (0-450) /uL Baso # (Auto) 0 (0-100) /uL Sodium 136 L (137-145) mmol/L Potassium 4.3 (3.4-5.1) mmol/L Chloride 103 (98-107) mmol/L Carbon Dioxide 27 (22-32) mmol/L BUN 14 (9-20) mg/dL Creatinine 1.06 (0.66-1.25) mg/dL Estimated GFR > 60 (>60) mL/min BUN/Creatinine Ratio 13.2 (6-22) Glucose 123 H (80-110) mg/dL Calcium 8.8 (8.4-10.2) mg/dL Total Bilirubin 0.8 (0.2-1.3) mg/dL AST 27 (17-59) IU/L ALT 24 (<50) IU/L Alkaline Phosphatase 30 L (38-126) U/L Total Protein 7.1 (6.3-8.2) g/dL Albumin 4.3 (3.5-5.0) g/dL Globulin 2.8 (1.7-4.1) g/dL Albumin/Globulin Ratio 1.5 (1.0-2.8) MDM Narrative Medical decision making narrative: CC: 67-year-old male with a resolved episode of blurring in his vision and some swelling in his right calf in the absence of injury Complicating co-morbidities: Age, diabetes, hypertension Data collected from: Patient Medical records reviewed: Prior notes reviewed in our EMR Differential considered, but not limited to: Stroke versus primary ocular problem versus DVT versus cellulitis versus other Exam documented above, pertinent findings include: No visual deficit, no hyphema, cranial nerves 2-12 intact, NIH stroke scale 0, there is some swelling of the right calf in the absence of pain, redness or warmth Lab Test results independently reviewed as above. Pertinent findings: No leukocytosis or left shift, no signs of anemia, electrolytes all within normal Independently reviewed EKG as above Imaging studies independently reviewed: Head CT unremarkable,DVT study negative Scores Used: NIHSS Discussion: Patient with reassuring history and physical exam. His episodes of visual field change had resolved long before arrival multiple days ago, no other neurologic symptoms, cranial nerves 2-12 intact, NIH stroke scale 0, imaging unremarkable, labs unremarkable, DVT considered for right lower extremity, however ultrasound is negative, furthermore exam demonstrates NO redness and warmth, cellulitis thought to be unlikely. Disposition: see below, along with detailed discharge instructions that have been reviewed with patient as well as indications for ED re-evaluation and additional outpatient follow up Discharge Plan Departure Patient Disposition: Home Clinical Impression: Swelling of calf, Vision blurred Activity Restrictions/Additional Instructions: *You have been diagnosed with [calf swelling and episode of vision change. As we discussed your history and physical exam are reassuring. Your labs and CT scan as well as ultrasound are unremarkable and there is no evidence of stroke or blood clot.] *What to do: *Please continue to take your regular medications as directed. [ ] New medication prescriptions sent to your pharmacy: [ ] [ ] New medication written as a paper prescription [ ] No new medications given *Please follow up with your primary care provider in 2-3 days, call for an appointment. Let them know you were seen in the Emergency Department and that we ask that you be seen in follow up. We will electronically transmit a record of today's note if your PCP is in our system * as discussed I have included contact information for local ophthalmology, please call the office tomorrow and let them know that you were seen in the emergency department and we would ask that he be seen in follow-up. *Return to Emergency Department if you should have any new, worsening or concerning symptoms, such as [fever greater than 101 F, shaking chills, worsening pain, persistent vomiting or other bothersome symptoms] Prescriptions: No Action metformin 1,000 mg tablet 1,000 mg PO BID losartan 25 mg tablet 25 mg PO BID nitroglycerin 0.4 mg tablet, sublingual 0.4 mg sublingual rosuvastatin 20 mg tablet 20 mg PO ONCE PM Glyxambi 25-5 mg tablet 1 tab PO DAILY aspirin 81 mg Capsule 81 mg PO DAILY Referrals: Dyan Barahoan MD [Primary Care Provider] - Rik Hernandez MD [Physician] - Stand Alone Forms: Patient Portal/API
--- NOTE | 2023-05-06 11:27 | DI.CT.S_ITS ---
PROCEDURE: CT HEAD/BRAIN WO CON INDICATIONS: vision change TECHNIQUE: Noncontrast 4.5 mm thick angled axial sections acquired from the foramen magnum to the vertex, with coronal and sagittal reformats. For radiation dose reduction, the following was used: automated exposure control, adjustment of mA and/or kV according to patient size. COMPARISON: [facility], CT, CT HEAD/BRAIN WO CON, 11/07/2019, 19:49. FINDINGS: Image quality: Excellent. CSF spaces: Basal cisterns are patent. No extra-axial fluid collections. Ventricles are normal in size and shape. Brain: No midline shift. No intracranial masses or hemorrhage. Dee-white matter interface is normal. Skull and face: Calvarium and visualized facial bones are intact, without suspicious lesions. Sinuses: Visualized sinuses and mastoids are clear. IMPRESSION: No acute intracranial pathology. Dictated by: Gregorio Dean M.D. on 05/06/2023 at 12:06 Approved by: Gregorio Dean M.D. on 05/06/2023 at 12:07
[2023-05-06 12:11] LABS: Add Manual Diff / Slide Review NO; Basophils Absolute Auto 0 /uL (0-100); Basophils Percent Auto 0.4 % (0-2); Eosinophils Absolute Auto 200 /uL (0-450); Eosinophils Percent Auto 2.2 % (2-4); Hematocrit 41.2 % (41-53); Hemoglobin 14.1 g/dL (13.5-17.5); Lymphocytes Absolute Auto 2900 /uL (1100-4500); Lymphocytes Percent Auto 36.7 % (25-40); Mean Corpuscular HGB Conc 34.1 % (30-36); Mean Corpuscular Hemoglobin 31.1 PG (26-34); Mean Corpuscular Volume 91.1 fL (80-100); Monocytes Absolute Auto 600 /uL (0-900); Monocytes Percent Auto 7.2 % (3-14); Neutrophils Absolute Auto 4300 /uL (1500-7000); Neutrophils Percent Auto 53.5 % (50-75); Platelet Count 149 X10^3/uL (150-400); Red Blood Cell Count 4.53 X10^6/uL (4.5-5.9); Red Cell Distribution Width 14.8 % (11.6-14.8)
[2023-05-06 12:20] LABS: Alanine Aminotransferase 24 IU/L (<50); Albumin 4.3 g/dL (3.5-5.0); Albumin Globulin Ratio 1.5 (1.0-2.8); Alkaline Phosphatase 30 U/L (38-126); Aspartate Aminotransferase 27 IU/L (17-59); BUN Creatinine Ratio 13.2 (6-22); Bilirubin Total 0.8 mg/dL (0.2-1.3); Blood Urea Nitrogen 14 mg/dL (9-20); Calcium 8.8 mg/dL (8.4-10.2); Carbon Dioxide 27 mmol/L (22-32); Chloride 103 mmol/L (98-107); Estimated Glomerular Filt Rate > 60 mL/min (>60); Globulin 2.8 g/dL (1.7-4.1); Glucose 123 mg/dL (80-110); HEMOLYSIS < 15 (0-50); Potassium 4.3 mmol/L (3.4-5.1); Sodium 136 mmol/L (137-145); Total Protein 7.1 g/dL (6.3-8.2)
== END 2023-05-06 13:36 | disposition home or self-care (01) ==
PROVIDERS: Emergency Provider Emergency Medicine; PCP Internal Medicine
DX: M79.89 Other specified soft tissue disorders (principal); H53.8 Other visual disturbances; I10 Essential (primary) hypertension
CPT/HCPCS: 36415; 70450; 80053; 85025; 93005; 93971; 99284

== ENCOUNTER 2023-05-29 21:33 | Observation (INO) | payer MEDICARE, OTHER, SELFPAY ==
[2023-05-29] VITALS (10 sets, daily range): BP systolic 139–172; BP diastolic 63–74; PULSE 49–54; RESP 16–18; TEMP 36.7; O2SAT 97–98; BMI 33.2
--- NOTE | 2023-05-29 21:34 | ED.GENADULT ---
HPI - General Adult General Chief complaint: Eye Problems Stated complaint: EYE STROKE Time Seen by Provider: 05/29/23 21:34 History of Present Illness HPI narrative: 67-year-old male nonsmoker with history of hypertension and hyperlipidemia presents?with another episode of R eye vision change. He states it started tonight at about 840pm. He states his vision went totally black and lasted about 4 minutes. He had this happen once before and reports that he was referred to a retinal specialist (Dr. Redding in [place]). He was told to come to the ED if this happened again. He states he is otherwise well and free of complaint. Related Data Home Medications Medication Instructions Recorded Confirmed aspirin 81 mg capsule 81 mg PO DAILY 05/06/23 05/30/23 empagliflozin 25 mg-linagliptin 5 1 tab PO DAILY 05/06/23 05/30/23 mg tablet (Glyxambi) losartan 25 mg tablet 50 mg PO BID 05/06/23 05/30/23 metformin 1,000 mg tablet 1,000 mg PO BID 05/06/23 05/30/23 nitroglycerin 0.4 mg sublingual 0.4 mg sublingual PRN PRN Chest 05/06/23 05/30/23 tablet Pain rosuvastatin 20 mg tablet 20 mg PO ONCE PM 05/06/23 05/30/23 Allergies Allergy/AdvReac Type Severity Reaction Status Date / Time No Known Drug Allergies Allergy Verified 05/06/23 11:31 Review of Systems Review of Systems Narrative: GENERAL: Denies chills, fatigue, malaise, fever, sweats. HEENT: Denies sinus pain, ear pain, sore throat, difficulty swallowing, dizziness. RESPIRATORY: Denies dyspnea, cough, wheezing, hemoptysis, sputum. CARDIOVASCULAR: Denies chest pain, palpitations, orthopnea, edema, GASTROINTESTINAL: Denies nausea, vomiting, abdominal pain, diarrhea, constipation, melena. : Denies dysuria, frequency, incontinence, hematuria, urinary retention. MUSCULOSKELETAL: denies weakness, joint pain, or bony pain SKIN: Denies rash, skin lesions, or other NEUROLOGIC: See HPI PSYCHIATRIC: No concerning psychosocial issues. 12 point review of systems is negative except for those stated above Patient History Social History household members: spouse Smoking Status: Never smoker substance use type: does not use Smoking Status: Never smoker alcohol intake frequency: other Exam Narrative Exam Narrative: GENERAL: [67] year old patient appears stated age. Well-developed patient, in mild distress. HEAD: Atraumatic. Normocephalic. EYES: Pupils equal round and reactive. Extraocular motions intact. No scleral icterus. No injection or drainage. ENT: Nose without bleeding, purulent drainage. Throat without erythema, tonsillar hypertrophy or exudate. Airway patent. NECK: Trachea midline. Non tender CARDIOVASCULAR: Regular rate and rhythm without murmurs, gallops, or rubs. RESPIRATORY: Clear to auscultation. Breath sounds equal bilaterally. No wheezes, rales, or rhonchi. GASTROINTESTINAL: Abdomen soft, non-tender, nondistended. EXTREMITIES: No edema or joint tenderness. BACK: Nontender without deformity or crepitance. No flank tenderness. NEURO: AOx3. SKIN: No rash or erythema of visible areas NIH Stroke Scale 1a. LOC: Patient is alert and keenly responsive (0) 1b. LOC Questions: Patient answers both LOC questions accurately (0) 1c. LOC Commands: Patient performs both tasks correctly (0) 2. Best Gaze: Normal (0) 3. Visual: No visual loss (0) 4. Facial palsy: Normal symmetrical movements (0) 5. Motor arm: No drift (0) 6. Motor leg: No drift (0) 7. Limb ataxia: Absent (0) 8. Sensory: Normal (0) 9. Best language: No aphasia; normal (0) 10. Dysarthria: Normal (0) 11. Extinction and inattention: No abnormality (0) NIHSS: 0 Initial Vital Signs Initial Vital Signs: Vital Signs Temperature 98.0 F 05/29/23 21:33 Pulse Rate 53 L 05/29/23 21:33 Respiratory Rate 16 05/29/23 21:33 Blood Pressure 172/74 H 05/29/23 21:33 Pulse Oximetry 97 05/29/23 21:33 Oxygen Delivery Method Room Air 05/29/23 21:33 Course Orders Ordered: ED Orders 05/29/23 21:[address] angio head and neck Stat 05/29/23 21:59 Complete Blood Count AUTO DIFF Stat Comprehensive Metabolic Panel Stat Ethanol (ETOH) Stat PTT Partial Thromboplastin Victorino Stat Prothrombin Time INR Stat Troponin & CK Cardiac Panel Stat 05/29/23 22:20 COVID19 -Nasal RAPID Stat 05/29/23 23:40 Urinalysis and Microscopic Stat Urine Drug Screen, Rapid Stat 05/30/23 Lipid Panel Routine 05/30/23 00:23 Chest [XR chest 1V] Stat 05/30/23 00:41 Consult to Occupational Therapy Evaluate & Treat Consult to Physical Therapy Evaluate & Treat 05/30/23 00:45 Basic Metabolic Panel DAILY Magnesium DAILY Atorvastatin Calcium (Atorvastatin 20 Mg Tablet) 40 mg PO BEDTIME BENI Clopidogrel Bisulfate (Clopidogrel 75 Mg Tablet) 75 mg PO DAILY [facility] Losartan Potassium (Losartan 25 Mg Tablet) 50 mg PO BID [facility] Nitroglycerin (Nitroglycerin 0.4 Mg Sl Tab) 0.4 mg SL PRN PRN PRN Reason: Chest Pain (Empagliflozin- Linagliptin [ Glyxambi] 25-5 Mg Tablet) 1 tab PO DAILY [facility] Sodium Chloride (Sodium Chloride 0.9% Flush) 10 ml IV BID BENI Discontinued Medications Acetaminophen (Acetaminophen 325 Mg Tablet) 650 mg PO Q6H [facility] Clopidogrel Bisulfate (Clopidogrel 75 Mg Tablet) 300 mg PO NOW ONE Stop: 05/30/23 00:56 Last Admin: 05/30/23 02:14 Dose: 300 mg Documented By: Enoxaparin Sodium (Enoxaparin 40 Mg/0.4 Ml Syringe) 40 mg SUBCUT DAILY [facility] Naloxone HCl (Naloxone 0.4 Mg/Ml Vial) 0.2 mg IV Q2MIN PRN PRN Reason: Opiate Reversal Ondansetron HCl (Ondansetron 4 Mg/2 Ml Inj) 4 mg IV Q8HR PRN PRN Reason: Nausea And Vomiting Vital Signs Vital signs: Vital Signs - 8 hr 05/29/23 21:33 05/29/23 21:39 05/29/23 21:40 Temperature 98.0 F Pulse Rate 53 L 54 L Respiratory Rate 16 Blood Pressure 172/74 H Pulse Oximetry 97 98 97 Oxygen Delivery Method Room Air Room Air Oxygen Flow Rate 05/29/23 21:40 05/29/23 22:12 05/29/23 22:12 Temperature Pulse Rate 52 L Respiratory Rate Blood Pressure 172/74 H 141/65 H Pulse Oximetry 98 Oxygen Delivery Method Oxygen Flow Rate 05/29/23 22:30 05/29/23 22:31 05/29/23 22:31 Temperature Pulse Rate 54 L 52 L Respiratory Rate 16 Blood Pressure 164/70 H Pulse Oximetry 97 97 Oxygen Delivery Method Oxygen Flow Rate 05/29/23 23:00 05/29/23 23:01 05/29/23 23:01 Temperature Pulse Rate 51 L 50 L Respiratory Rate 17 18 Blood Pressure 148/67 H Pulse Oximetry 97 97 Oxygen Delivery Method Oxygen Flow Rate 05/29/23 23:30 05/29/23 23:31 05/29/23 23:31 Temperature Pulse Rate 50 L 49 L Respiratory Rate 16 17 Blood Pressure 139/63 Pulse Oximetry 98 97 Oxygen Delivery Method Oxygen Flow Rate 05/30/23 00:00 05/30/23 00:01 05/30/23 00:01 Temperature Pulse Rate 48 L 48 L Respiratory Rate 19 25 H Blood Pressure 163/71 H Pulse Oximetry 99 98 Oxygen Delivery Method Oxygen Flow Rate 05/30/23 00:30 05/30/23 00:31 05/30/23 00:31 Temperature Pulse Rate 48 L 45 L Respiratory Rate 15 15 Blood Pressure 150/69 H Pulse Oximetry 98 97 Oxygen Delivery Method Oxygen Flow Rate 05/30/23 00:36 Temperature 97.7 F Pulse Rate 48 L Respiratory Rate 16 Blood Pressure 148/60 H Pulse Oximetry 99 Oxygen Delivery Method Oxygen Flow Rate 0 Medical Decision Making Lab Data 05/29/23 21:59 05/29/23 21:59 Labs: Lab Results 05/29/23 05/29/23 05/29/23 Range/Units 21:59 21:59 21:59 WBC 8.8 (4.5-11.0) X10^3/uL RBC 4.52 (4.5-5.9) X10^6/uL Hgb 13.9 (13.5-17.5) g/dL Hct 40.8 L (41-53) % MCV 90.2 (80-100) fL MCH 30.8 (26-34) PG MCHC 34.2 (30-36) % RDW 14.8 (11.6-14.8) % Plt Count 160 (150-400) X10^3/uL Neut % (Auto) 55.3 (50-75) % Lymph % (Auto) 34.5 (25-40) % [place] % (Auto) 6.0 (3-14) % Eos % (Auto) 4.0 (2-4) % Baso % (Auto) 0.2 (0-2) % Neut # (Auto) 4800 (2131-9054) /uL Lymph # (Auto) 3000 (9808-0210) /uL [place] # (Auto) 500 (0-900) /uL Eos # (Auto) 400 (0-450) /uL Baso # (Auto) 0 (0-100) /uL PT 13.2 H (10.1-12.7) SECONDS INR 1.2 (0.9-1.3) APTT 28 (26-36) SECONDS Sodium 139 (137-145) mmol/L Potassium 4.0 (3.4-5.1) mmol/L Chloride 106 (98-107) mmol/L Carbon Dioxide 23 (22-32) mmol/L BUN 20 (9-20) mg/dL Creatinine 1.10 (0.66-1.25) mg/dL Estimated GFR > 60 (>60) mL/min BUN/Creatinine Ratio 18.2 (6-22) Glucose 129 H (80-110) mg/dL Calcium 8.9 (8.4-10.2) mg/dL Total Bilirubin 0.7 (0.2-1.3) mg/dL AST 26 (17-59) IU/L ALT 21 (<50) IU/L Alkaline Phosphatase 38 (38-126) U/L Total Creatine Kinase 108 (55-170) U/L Troponin I < 0.012 (0.01-0.034) ng/mL Total Protein 6.9 (6.3-8.2) g/dL Albumin 4.2 (3.5-5.0) g/dL Globulin 2.7 (1.7-4.1) g/dL Albumin/Globulin Ratio 1.6 (1.0-2.8) Urine Color Urine Appearance Urine pH (4.5-8.0) Ur Specific [place] (1.000-1.035) Urine Protein (Negative) Urine Glucose (UA) (Negative) g/dL Urine Ketones (NEGATIVE) Urine Occult Blood (Negative) Urine Nitrate (Negative) Urine Bilirubin (NEGATIVE) Urine Urobilinogen (0.2) E.U./dL Ur Leukocyte Esterase (NEGATIVE) Urine RBC (0-5/HPF) Urine WBC (0-5/HPF) Ur Squamous Epith Cells (0-5/HPF) Urine Bacteria (None) Ur Culture Indicated? U Opiates 300ng/mL cut (Negative) Ur Oxycodone Screen (Negative) Urine Methadone Screen (Negative) Ur Barbiturates Screen (Negative) U Tricyclic Antidepress (Negative) Ur Phencyclidine Scrn (Negative) Ur Amphetamines Screen (Negative) U Methamphetamines Scrn (Negative) Ur MDMA Scrn (Ecstasy) (Negative) U Benzodiazepines Scrn (Negative) Urine Cocaine Screen (Negative) U Marijuana (THC) Screen (Negative) Ethyl Alcohol < 10 ( - 10) mg/dL SARS-CoV-2 (PCR) (Negative) 05/29/23 05/29/23 05/29/23 Range/Units 22:20 23:40 23:40 WBC (4.5-11.0) X10^3/uL RBC (4.5-5.9) X10^6/uL Hgb (13.5-17.5) g/dL Hct (41-53) % MCV (80-100) fL MCH (26-34) PG MCHC (30-36) % RDW (11.6-14.8) % Plt Count (150-400) X10^3/uL Neut % (Auto) (50-75) % Lymph % (Auto) (25-40) % [place] % (Auto) (3-14) % Eos % (Auto) (2-4) % Baso % (Auto) (0-2) % Neut # (Auto) (7188-9164) /uL Lymph # (Auto) (0877-2897) /uL [place] # (Auto) (0-900) /uL Eos # (Auto) (0-450) /uL Baso # (Auto) (0-100) /uL PT (10.1-12.7) SECONDS INR (0.9-1.3) APTT (26-36) SECONDS Sodium (137-145) mmol/L Potassium (3.4-5.1) mmol/L Chloride (98-107) mmol/L Carbon Dioxide (22-32) mmol/L BUN (9-20) mg/dL Creatinine (0.66-1.25) mg/dL Estimated GFR (>60) mL/min BUN/Creatinine Ratio (6-22) Glucose (80-110) mg/dL Calcium (8.4-10.2) mg/dL Total Bilirubin (0.2-1.3) mg/dL AST (17-59) IU/L ALT (<50) IU/L Alkaline Phosphatase (38-126) U/L Total Creatine Kinase (55-170) U/L Troponin I (0.01-0.034) ng/mL Total Protein (6.3-8.2) g/dL Albumin (3.5-5.0) g/dL Globulin (1.7-4.1) g/dL Albumin/Globulin Ratio (1.0-2.8) Urine Color Yellow Urine Appearance Clear Urine pH 5.0 (4.5-8.0) Ur Specific [place] 1.015 (1.000-1.035) Urine Protein Negative (Negative) Urine Glucose (UA) 3+ H (Negative) g/dL Urine Ketones Trace H (NEGATIVE) Urine Occult Blood Negative (Negative) Urine Nitrate Negative (Negative) Urine Bilirubin Negative (NEGATIVE) Urine Urobilinogen 0.2 (0.2) E.U./dL Ur Leukocyte Esterase Negative (NEGATIVE) Urine RBC None seen (0-5/HPF) Urine WBC None seen (0-5/HPF) Ur Squamous Epith Cells 0-1 /hpf (0-5/HPF) Urine Bacteria None seen (None) Ur Culture Indicated? Cult not indicated U Opiates 300ng/mL cut Negative (Negative) Ur Oxycodone Screen Negative (Negative) Urine Methadone Screen Negative (Negative) Ur Barbiturates Screen Negative (Negative) U Tricyclic Antidepress Negative (Negative) Ur Phencyclidine Scrn Negative (Negative) Ur Amphetamines Screen Negative (Negative) U Methamphetamines Scrn Negative (Negative) Ur MDMA Scrn (Ecstasy) Negative (Negative) U Benzodiazepines Scrn Negative (Negative) Urine Cocaine Screen Negative (Negative) U Marijuana (THC) Screen Negative (Negative) Ethyl Alcohol ( - 10) mg/dL SARS-CoV-2 (PCR) Negative (Negative) Urine Dip Bedside Urine Glucose 1000 mg/dl Bedside Urine Bilirubin - Negative Bedside Urine Ketone - Negative Urine Specific [place] 1.015 Bedside Urine Occult Blood - Negative Bedside Urine pH 5.5 Bedside Urine Protein - Negative Bedside Urine Urobilinogen - Negative Bedside Urine Nitrite - Negative Bedside Urine Leukocytes - Negative Esterase Point of care testing: Urine Dip Bedside Urine Glucose 1000 mg/dl Bedside Urine Bilirubin - Negative Bedside Urine Ketone - Negative Urine Specific [place] 1.015 Bedside Urine Occult Blood - Negative Bedside Urine pH 5.5 Bedside Urine Protein - Negative Bedside Urine Urobilinogen - Negative Bedside Urine Nitrite - Negative Bedside Urine Leukocytes - Negative Esterase MDM Narrative Medical decision making narrative: CC: 67-year-old male with a 4 minute vision problem Complicating co-morbidities: Age, BMI 33, hypertension, hyperlipidemia, diabetes Data collected from: Patient Medical records reviewed: Prior notes reviewed in our EMR Differential considered, but not limited to: TIA versus ocular problem versus other Exam documented above, pertinent findings include: Funduscopic exam normal, NIH stroke scale 0, heart rate regular, lungs clear Lab Test results independently reviewed as above. Pertinent findings: No leukocytosis or left shift. Electrolytes, renal function and troponin all within normal Independently reviewed EKG as above Imaging studies independently reviewed: CT of the head without intracranial hemorrhage. CTA of the head and neck demonstrates high-grade stenosis of right internal carotid, no high-grade stenosis or large vessel occlusion noted Scores Used: NIHSS Consultations: call to /[facility] Neuro, recommend admission for stroke/TIA workup including MRI and echo. Discharge Plan Departure Patient Disposition: Admitted as Observation Clinical Impression: Brain TIA Admit Date/Time: 05/30/23 00:40 Admit Provider: Emilia Granger
--- NOTE | 2023-05-29 21:49 | DI.CT.S_ITS ---
PROCEDURE: CT ANGIO HEAD AND NECK INDICATIONS: vision change TECHNIQUE: After the administration of intravenous contrast, 1 mm thick sections acquired from the aortic arch through the Otho of Teran. 3-dimensional qcepufk-brnfpplsh-uqcueybdoi (MIP) and/or volume rendering reformats were acquired of the central intracranial vasculature and neck separately. For radiation dose reduction, the following was used: automated exposure control, adjustment of mA and/or kV according to patient size. COMPARISON: [facility], CT, CT HEAD/BRAIN WO CON, 11/07/2019, 19:49. [facility], CT, CT STROKE, 05/29/2023, 22:01. [facility], CT, CT HEAD/BRAIN WO CON, 05/06/2023, 11:37. FINDINGS: Image quality: Diagnostic. BRAIN: CSF spaces: Ventricles are normal in size and shape. Basal cisterns are patent. No extra-axial fluid collections. Brain: No significant abnormality of the brain can be seen. Skull and face: Small hyperdense focus in the left suboccipital scalp appears stable when compared to exams dating back to 2019 and may represent chronic scarring or other benign process. Calvarium and facial bones appear intact, without suspicious lesions. Orbits appear normal. Sinuses: Sinuses and mastoids are clear, apart from a small mucous retention cyst at the right sphenoid sinus and mild mucosal thickening at the bilateral ethmoid air cells. HEAD CT ANGIOGRAPHY: Anterior circulation: Intracranial internal carotid demonstrate mild atherosclerotic calcifications without significant stenosis. The flow within the paired anterior cerebral arteries is normal and symmetric. The flow within the middle cerebral arteries is normal and symmetric. The anterior communicating artery is seen. No aneurysms are seen. Posterior circulation: Visualized portions of the vertebral arteries demonstrate normal caliber, and join to form a normal appearing basilar artery. Flow within the posterior cerebral arteries is normal and symmetric. Prominent bilateral posterior communicating arteries are seen with a hypoplastic P1 segment of the left posterior cerebral artery, a normal variant. No aneurysms are seen. NECK CT ANGIOGRAPHY: Carotid system: The great vessels demonstrate a conventional anatomy as they arise from the aortic arch. The origins of the common carotid arteries appear patent. The common carotid arteries demonstrate normal caliber and courses. Atherosclerotic calcifications are seen at the bilateral carotid bifurcations and proximal internal carotid arteries. Distal tendons focal severe stenosis of the proximal right internal carotid artery, estimated to be at least 80%. There is less than 50% stenosis of the left internal carotid artery. The bifurcation regions are both widely patent. The internal carotid arteries demonstrate normal calibers and courses. Posterior circulation: Mild focal atherosclerotic calcification at the origin of the right vertebral artery resulting in less than 50% stenosis. No significant stenosis of the left vertebral artery origin. The more superior extracranial portions of both vertebral arteries also demonstrate normal courses and calibers. They join to form a normal appearing basilar artery. Soft tissues: Visualized neck soft tissues demonstrate no suspicious abnormalities. Bones: No suspicious bony lesions. Multilevel degenerative changes are seen in the spine. IMPRESSION: 1. Focal high-grade stenosis of the proximal right internal carotid artery. 2. Less than 50% stenosis of the proximal left internal carotid artery. 3. No high-grade stenosis or large vessel occlusion within the major arteries of the head. Any quantitative measurements of stenosis were performed using NASCET criteria. Approved by: Wilian Hernandez M.D. on 05/29/2023 at 22:41
--- NOTE | 2023-05-29 21:49 | DI.CT.S_ITS ---
PROCEDURE: CT STROKE INDICATIONS: vision change TECHNIQUE: Noncontrast 4.5 mm thick angled axial sections acquired from the foramen magnum to the vertex, with coronal reformats. For radiation dose reduction, the following was used: automated exposure control, adjustment of mA and/or kV according to patient size. COMPARISON: None. FINDINGS: Image quality: Excellent. CSF spaces: Basal cisterns are patent. No extra-axial fluid collections. The ventricles are symmetric in size and shape. Brain: No acute intracranial hemorrhage or mass effect. There is cerebral volume loss for age, with resultant ventricular and sulcal prominence. There are mild periventricular and deep white matter chronic small vessel ischemic changes. There is intracranial internal carotid artery atherosclerosis. Skull and face: Focal hyperdense area in the left suboccipital scalp is most likely a small hematoma. Calvarium and visualized facial bones appear intact, without suspicious lesions. Sinuses: Mild mucosal thickening in the bilateral ethmoid air cells. The remaining visualized paranasal sinuses and the mastoid air cells are clear. IMPRESSION: Small left posterior scalp hematoma. No skull fracture. No acute intracranial abnormality. Findings were discussed with the referring physician, Dr. Zhu, by telephone on 05/29/2023 at 10:17 PM. This study fulfills neurological imaging criteria for inclusion or exclusion of acute stroke therapies based on available published neurological guidelines. Approved by: Wilian Hernandez M.D. on 05/29/2023 at 22:18
[2023-05-29 22:06] LABS: Add Manual Diff / Slide Review NO; Basophils Absolute Auto 0 /uL (0-100); Basophils Percent Auto 0.2 % (0-2); Eosinophils Absolute Auto 400 /uL (0-450); Hematocrit 40.8 % (41-53); Hemoglobin 13.9 g/dL (13.5-17.5); Lymphocytes Absolute Auto 3000 /uL (1100-4500); Lymphocytes Percent Auto 34.5 % (25-40); Mean Corpuscular HGB Conc 34.2 % (30-36); Mean Corpuscular Hemoglobin 30.8 PG (26-34); Mean Corpuscular Volume 90.2 fL (80-100); Monocytes Absolute Auto 500 /uL (0-900); Neutrophils Absolute Auto 4800 /uL (1500-7000); Neutrophils Percent Auto 55.3 % (50-75); Platelet Count 160 X10^3/uL (150-400); Red Blood Cell Count 4.52 X10^6/uL (4.5-5.9); Red Cell Distribution Width 14.8 % (11.6-14.8); White Blood Cell Count 8.8 X10^3/uL (4.5-11.0)
[2023-05-29 22:12] LABS: INR 1.2 (0.9-1.3); Prothrombin Time 13.2 SECONDS (10.1-12.7)
[2023-05-29 22:14] LABS: PTT Partial Thromboplastin Tim 28 SECONDS (26-36)
[2023-05-29 22:21] LABS: Alanine Aminotransferase 21 IU/L (<50); Albumin 4.2 g/dL (3.5-5.0); Albumin Globulin Ratio 1.6 (1.0-2.8); Alkaline Phosphatase 38 U/L (38-126); Aspartate Aminotransferase 26 IU/L (17-59); BUN Creatinine Ratio 18.2 (6-22); Bilirubin Total 0.7 mg/dL (0.2-1.3); Blood Urea Nitrogen 20 mg/dL (9-20); Calcium 8.9 mg/dL (8.4-10.2); Carbon Dioxide 23 mmol/L (22-32); Chloride 106 mmol/L (98-107); Creatine Kinase 108 U/L (55-170); Estimated Glomerular Filt Rate > 60 mL/min (>60); Ethanol (ETOH) < 10 mg/dL; Globulin 2.7 g/dL (1.7-4.1); Glucose 129 mg/dL (80-110); HEMOLYSIS 16 (0-50); Sodium 139 mmol/L (137-145); Total Protein 6.9 g/dL (6.3-8.2)
[2023-05-29 22:31] LABS: Troponin I < 0.012 ng/mL (0.01-0.034)
[2023-05-29 22:41] LABS: COVID19 -Nasal RAPID Negative (Negative)
[2023-05-29 23:47] LABS: Appearance Urine UA CLEAR; Bilirubin Urine UA NEGATIVE (NEGATIVE); Color Urine UA YELLOW; Glucose Urine UA 3+ g/dL (Negative); Ketones Urine UA TRACE (NEGATIVE); Leukocyte Esterase Urine UA NEGATIVE (NEGATIVE); Nitrite Urine UA NEGATIVE (Negative); Occult Blood Urine UA NEGATIVE (Negative); Protein Urine UA NEGATIVE (Negative); Specific Gravity Urine UA 1.015 (1.000-1.035); Urobilinogen Urine UA 0.2 E.U./dL (0.2)
[2023-05-29 23:53] LABS: Bacteria Urine None Seen; Culture Indicated Urine Cult Not Indicated; RBC Urine None Seen (0-5/HPF); Squamous Epithelial Cell Urine 0-1 /HPF (0-5/HPF); WBC Urine None Seen (0-5/HPF)
[2023-05-29 23:55] LABS: UR Morphine/Opiate cutoff 300 Negative (Negative); Ur Creatinine Normal (Normal); Ur Specific Gravity Normal (Normal); Urine Amphetamines Negative (Negative); Urine Barbiturates Negative (Negative); Urine Benzodiazepines Negative (Negative); Urine Cocaine Negative (Negative); Urine MDMA Negative (Negative); Urine Methadone Negative (Negative); Urine Methamphetamines Negative (Negative); Urine Oxycodone Negative (Negative); Urine Phencyclidine Negative (Negative); Urine Tetrahydrocannabinol Negative (Negative); Urine Tricyclic Antidepressant Negative (Negative); Urine pH Normal (Normal)
[2023-05-30] VITALS (7 sets, daily range): BP systolic 112–163; BP diastolic 51–71; PULSE 45–49; RESP 15–25; TEMP 36.2–36.5; O2SAT 97–99; BMI 33.2
--- NOTE | 2023-05-30 00:23 | DI.RAD.S_ITS ---
PROCEDURE: XR CHEST 1V INDICATIONS: stroke eval TECHNIQUE: One view of the chest was acquired. COMPARISON: [facility], , XR CHEST 1V, 11/07/2019, 18:20. FINDINGS: Surgical changes and devices: Electronic device seen projecting over the left chest. Lungs and pleura: Lungs are clear. No pleural effusions or pneumothorax. Mediastinum: Mediastinal contours appear normal. Heart size is normal. Bones and chest wall: No suspicious bony lesions. Overlying soft tissues appear unremarkable. IMPRESSION: No acute cardiopulmonary abnormality. Approved by: Wilian Hernandez M.D. on 05/30/2023 at 0:51
--- NOTE | 2023-05-30 01:44 | DI.ECHO.S_ITS ---
[facility]---------+ [facility] +---------+ : : [address] : : : : [id number] : : : : Phone: [phone] Echocardiogram Report + + :Name: ALEKASNDAR REYES Study Date: 05/30/2023 Height: 76 in : :[facility] ReadingLocation: Weight: 273 lb : : Gender: Male BSA: 2.5 m2 : :: 1955 Age: 67 yrs BP: 148/60 mmHg: :Reason For Study: VISUAL DISTURBANCE : :Ordering Physician: RONALD, : :JOSELYN De La Rosa MD Performed By: Day Pete : :Referring: JOSELYN CARDENAS MD : + + Interpretation Summary Normal left ventricle size with ejection fraction 60-65%. Mild aortic valve sclerosis. Mild mitral annular calcification. Mild mitral regurgitation. Mild tricuspid regurgitation. Injection of contrast documented no interatrial shunt. Procedure: A two-dimensional transthoracic echocardiogram with color flow and Doppler was performed. The study quality was technically adequate. There is no prior echocardiogram noted for this patient. A saline contrast injection was performed to assess for cardiac shunting. The injection was performed through an intravenous line in the left arm. The patient was in sinus bradycardia with heart rates between 46-51 bpm during the exam. Left Ventricle: The left ventricle is normal in size and wall thickness. The ejection fraction is estimated to be 60-65%. There are no focal wall motion abnormalities. Right Ventricle: The right ventricle is normal in size and function. Atria: The left atrial size is normal. Right atrial size is normal. There is no Doppler evidence for an interatrial shunt. Injection of contrast documented no interatrial shunt. Mitral Valve: The mitral valve leaflets appear mildly thickened, but open well. The mitral valve leaflets appear to open well. There is mild mitral annular calcification. There is mild mitral regurgitation. Aortic Valve: There is mild aortic valve sclerosis. The aortic valve opens well. There is no aortic valve stenosis. No aortic regurgitation is present. Tricuspid Valve: The tricuspid valve is normal in structure and function. There is mild tricuspid regurgitation. Pulmonic Valve: The pulmonic valve is not well visualized. There is trace pulmonic regurgitation. Great Vessels: The aortic root is normal size. The dimensions of the ascending aorta are normal. The IVC is of normal diameter and collapses greater than 50% with a sniff. This suggests a low right atrial pressure of 3 mm Hg. Pericardium/ Pleura There is no pericardial effusion. There is no pleural effusion. MMode/2D Measurements & Calculations LVIDd: 5.5 cm LVOT diam: 2.2 cm LVIDs: 3.9 cm Ao root diam: 3.4 cm FS: 29.0 % asc Aorta Diam: 3.1 cm IVSd: 0.83 cm Ao Arch Diam (Prox Trans): 3.1 cm LVPWd: 0.96 cm LV bliss. diameter/BSA (cm/m^2): 2.2 LV sys. diameter/BSA (cm/m^2): 1.5 LA A2 area: 26.8 cm2 RA long axis: 4.6 cm LA A4 area: 14.6 cm2 RA area: 13.9 cm2 LA length (vol): 4.7 cm RA vol: 35.4 ml LA vol: 70.5 ml RA : 14.0 ml/m2 LA vol index: 27.9 ml/m2 IVC diam: 1.8 cm RVD1 (basal): 3.6 cm RVD2 (mid): 3.9 cm TAPSE: 2.5 cm Doppler Measurements & Calculations Ao V2 max: 139.5 cm/sec LVOT Max Yo: 113.7 cm/sec Ao V2 mean: 99.5 cm/sec LV V1 max P.2 mmHg Ao max P.8 mmHg LV V1 VTI: 31.5 cm Ao mean P.4 mmHg ANA(I,D): 3.4 cm2 Ao V2 VTI: 35.6 cm ANA(V,D): 3.1 cm2 sev ratio: 0.89 ANA indexed to BSA (cm^2/m^2): 1.3 MV E max yo: 85.1 cm/sec TR max yo: 223.0 cm/sec MV A max yo: 104.2 cm/sec TR max P.9 mmHg MV E/A: 0.82 PA pr(Accel): -4.9 mmHg Med Peak E' Yo: 8.9 cm/sec E/E' med: 9.5 Lat Peak E' Yo: 11.5 cm/sec E/E' lat: 7.4 E/e' average: 8.5 MV dec time: 0.25 sec SV(LVOT): 121.0 ml Electronically signed by: Elver Euceda on Reading Physician:05/30/2023 10:48 AM
--- NOTE | 2023-05-30 02:05 | PM.HP.1 ---
History of Present Illness History of Present Illness Date Patient Seen: 05/30/23 Time Patient Seen: 02:05 Chief complaint: visual disturbance Narrative: 67 year old male with history of DM, HTN, HLD here after have a minute episode where his right visual field went guthrie. He states it started suddenly and endly suddenly and he has had 4 episodes of same. He has been evaluated by opthalmology (retina specialist) who could find nothing wrong and told him in the future he needed to go to the ED to rule out a CVA. He was seen in the ED and CT/CTA did not show acute CVA or large vessel occlusion. Neurology was consulted and recommend DAPT with plavix load and MRI/ECHO to complete work up. He states he is fine now and had no weakness, speech issue or dysphagia during the event which occurred at the dinner table tonight. His brother has had similar episodes attributed to glaucoma. He further denies recent fever, illness, nausea, vomiting, chest pain or dyspnea. [facility] Social History household members: spouse Smoking Status: Never smoker substance use type: does not use Meds Home Medications and Allergies Home Medications Medication Instructions Recorded Confirmed Type aspirin 81 mg capsule 81 mg PO DAILY 05/06/23 05/30/23 History empagliflozin 25 mg-linagliptin 5 1 tab PO DAILY 05/06/23 05/30/23 History mg tablet (Glyxambi) losartan 25 mg tablet 50 mg PO BID 05/06/23 05/30/23 History metformin 1,000 mg tablet 1,000 mg PO BID 05/06/23 05/30/23 History nitroglycerin 0.4 mg sublingual 0.4 mg sublingual PRN PRN Chest 05/06/23 05/30/23 History tablet Pain rosuvastatin 20 mg tablet 20 mg PO ONCE PM 05/06/23 05/30/23 History Allergies Allergy/AdvReac Type Severity Reaction Status Date / Time No Known Drug Allergies Allergy Verified 05/06/23 11:31 Review of Systems Review of Systems Narrative: all negative except visual change Cardiovascular Comments: no chest pain Respiratory Comments: no shortness of breath Gastrointestinal Comments: no vomiting or diarrhea Neurologic Comments: as above Psychiatric Comments: no issues Exam Vital Signs (past 8 hours): - 05/29/23 21:33 05/29/23 21:39 05/29/23 21:40 Temperature 98.0 F Pulse Rate 53 L 54 L Respiratory Rate 16 Blood Pressure 172/74 H Pulse Oximetry 97 98 97 Oxygen Delivery Method Room Air Room Air Oxygen Flow Rate 05/29/23 21:40 05/29/23 22:12 05/29/23 22:12 Temperature Pulse Rate 52 L Respiratory Rate Blood Pressure 172/74 H 141/65 H Pulse Oximetry 98 Oxygen Delivery Method Oxygen Flow Rate 05/29/23 22:30 05/29/23 22:31 05/29/23 22:31 Temperature Pulse Rate 54 L 52 L Respiratory Rate 16 Blood Pressure 164/70 H Pulse Oximetry 97 97 Oxygen Delivery Method Oxygen Flow Rate 05/29/23 23:00 05/29/23 23:01 05/29/23 23:01 Temperature Pulse Rate 51 L 50 L Respiratory Rate 17 18 Blood Pressure 148/67 H Pulse Oximetry 97 97 Oxygen Delivery Method Oxygen Flow Rate 05/29/23 23:30 05/29/23 23:31 05/29/23 23:31 Temperature Pulse Rate 50 L 49 L Respiratory Rate 16 17 Blood Pressure 139/63 Pulse Oximetry 98 97 Oxygen Delivery Method Oxygen Flow Rate 05/30/23 00:00 05/30/23 00:01 05/30/23 00:01 Temperature Pulse Rate 48 L 48 L Respiratory Rate 19 25 H Blood Pressure 163/71 H Pulse Oximetry 99 98 Oxygen Delivery Method Oxygen Flow Rate 05/30/23 00:30 05/30/23 00:31 05/30/23 00:31 Temperature Pulse Rate 48 L 45 L Respiratory Rate 15 15 Blood Pressure 150/69 H Pulse Oximetry 98 97 Oxygen Delivery Method Oxygen Flow Rate 05/30/23 00:36 Temperature 97.7 F Pulse Rate 48 L Respiratory Rate 16 Blood Pressure 148/60 H Pulse Oximetry 99 Oxygen Delivery Method Oxygen Flow Rate 0 Oxygen Delivery Method Room Air Oxygen Flow Rate 0 Const General: cooperative, healthy appearing and comfortable Nutritional Appearance: well nourished Orientation: oriented x3 HENMT Head: normal to inspection and normocephalic Mouth: oral mucosae normal and lip normal Teeth and gingiva: dentition normal Eyes Visual Flores: normal visual flores by confrontation Alignment and Position: alignment normal Periorbital: periorbital findings normal Eyelids: eyelids normal Sclera: sclerae normal Pupils: PERRL EOM: EOM intact bilaterally Chest Chest: normal inspection of the chest Resp Effort & Inspection: normal respiratory effort and able to speak in complete sentences Cardio Rate: bradycardic Rhythm: regular rhythm Heart Sounds: S1 normal and S2 normal GI Inspection: normal to inspection Palpation: soft Skin Rashes: no rashes Neuro General: patient alert, patient oriented x3, tone normal, moves all extremities, no meningeal signs, no focal motor deficits and CN's II-XI intact bilaterally Psych Mental Status: mental status grossly normal Speech and Movement: speech and movement normal Affect: normal affect Objective ECG Impression: Sinus brendan with first degree AV block Imaging CT scan - head: Radiologist's impression: No acute CVA or LVO Labs 05/29/23 21:59 05/29/23 21:59 Labs: Laboratory Results - last 24 hr 05/29/23 05/29/23 05/29/23 21:59 21:59 21:59 WBC 8.8 RBC 4.52 Hgb 13.9 Hct 40.8 L MCV 90.2 MCH 30.8 MCHC 34.2 RDW 14.8 Plt Count 160 Neut % (Auto) 55.3 Lymph % (Auto) 34.5 [place] % (Auto) 6.0 Eos % (Auto) 4.0 Baso % (Auto) 0.2 Neut # (Auto) 4800 Lymph # (Auto) 3000 [place] # (Auto) 500 Eos # (Auto) 400 Baso # (Auto) 0 PT 13.2 H INR 1.2 APTT 28 Sodium 139 Potassium 4.0 Chloride 106 Carbon Dioxide 23 BUN 20 Creatinine 1.10 Estimated GFR > 60 BUN/Creatinine Ratio 18.2 Glucose 129 H Calcium 8.9 Total Bilirubin 0.7 AST 26 ALT 21 Alkaline Phosphatase 38 Total Creatine Kinase 108 Troponin I < 0.012 Total Protein 6.9 Albumin 4.2 Globulin 2.7 Albumin/Globulin Ratio 1.6 Urine Color Urine Appearance Urine pH Ur Specific [place] Urine Protein Urine Glucose (UA) Urine Ketones Urine Occult Blood Urine Nitrate Urine Bilirubin Urine Urobilinogen Ur Leukocyte Esterase Urine RBC Urine WBC Ur Squamous Epith Cells Urine Bacteria Ur Culture Indicated? U Opiates 300ng/mL cut Ur Oxycodone Screen Urine Methadone Screen Ur Barbiturates Screen U Tricyclic Antidepress Ur Phencyclidine Scrn Ur Amphetamines Screen U Methamphetamines Scrn Ur MDMA Scrn (Ecstasy) U Benzodiazepines Scrn Urine Cocaine Screen U Marijuana (THC) Screen Ethyl Alcohol < 10 SARS-CoV-2 (PCR) 05/29/23 05/29/23 05/29/23 22:20 23:40 23:40 WBC RBC Hgb Hct MCV MCH MCHC RDW Plt Count Neut % (Auto) Lymph % (Auto) [place] % (Auto) Eos % (Auto) Baso % (Auto) Neut # (Auto) Lymph # (Auto) [place] # (Auto) Eos # (Auto) Baso # (Auto) PT INR APTT Sodium Potassium Chloride Carbon Dioxide BUN Creatinine Estimated GFR BUN/Creatinine Ratio Glucose Calcium Total Bilirubin AST ALT Alkaline Phosphatase Total Creatine Kinase Troponin I Total Protein Albumin Globulin Albumin/Globulin Ratio Urine Color Yellow Urine Appearance Clear Urine pH 5.0 Ur Specific [place] 1.015 Urine Protein Negative Urine Glucose (UA) 3+ H Urine Ketones Trace H Urine Occult Blood Negative Urine Nitrate Negative Urine Bilirubin Negative Urine Urobilinogen 0.2 Ur Leukocyte Esterase Negative Urine RBC None seen Urine WBC None seen Ur Squamous Epith Cells 0-1 /hpf Urine Bacteria None seen Ur Culture Indicated? Cult not indicated U Opiates 300ng/mL cut Negative Ur Oxycodone Screen Negative Urine Methadone Screen Negative Ur Barbiturates Screen Negative U Tricyclic Antidepress Negative Ur Phencyclidine Scrn Negative Ur Amphetamines Screen Negative U Methamphetamines Scrn Negative Ur MDMA Scrn (Ecstasy) Negative U Benzodiazepines Scrn Negative Urine Cocaine Screen Negative U Marijuana (THC) Screen Negative Ethyl Alcohol SARS-CoV-2 (PCR) Negative Assessment & Plan Assessment and plan (1) Brain TIA: Status: Acute Assessment & Plan narrative: Visual disturbance suspect TIA neurology has recommended the following Plavix 300mg po now Plavix 75 mg daily x 21 days asa 81 mg daily until Plavix stopped then 324 mg daily MRI ECHO I have added OT/PT evaluation to complete CVA evaluation and lipid level HTN continue Losartan HLD continue statin, consider increasing dose Diabetes diabetic diet hold metformin continue usual medication
[2023-05-30] MEDS: CLOPIDOGREL 75 MG TABLET 300 MG PO (02:14)
[2023-05-30 06:18] LABS: BUN Creatinine Ratio 18.5 (6-22); Blood Urea Nitrogen 20 mg/dL (9-20); Calcium 8.7 mg/dL (8.4-10.2); Carbon Dioxide 26 mmol/L (22-32); Chloride 106 mmol/L (98-107); Estimated Glomerular Filt Rate > 60 mL/min (>60); Glucose 106 mg/dL (80-110); HEMOLYSIS < 15 (0-50); Magnesium 2.1 mg/dL (1.6-2.3); Potassium 4.6 mmol/L (3.4-5.1); Sodium 139 mmol/L (137-145)
[2023-05-30 06:19] LABS: Cholesterol 101 mg/dL (140-199); HDL Cholesterol 36 mg/dL (40-60); LDL Cholesterol Calculated 46 mg/dL (<100); Triglycerides 97 mg/dL (35-150)
--- NOTE | 2023-05-30 08:34 | CM.DANOTE ---
DCP: Case received, EMR reviewed and met with patient. Introduced self and role. Was able to obtain information regarding patient's baseline activity status prior to admission. DCP assessment completed with information currently available. Patient is a 67 year old male who admitted early this morning to the care of the hospitalist team. PCP: Dr. Barahona. Payer: confirmed: Medicare/ for Life. Patient came to the hospital via private vehicle secondary to having right eye vision change. Patient had indicated that it started around 9:00pm, vision went totally black and lasted about 4 minutes. Patient had also indicated that this happened once before, and he was referred to a retinal specialist, and to come to the ER is symptoms happened again. Patient was diagnosed with TIA, is to have MRI today. Met with patient in his room. He was sitting up in bed, alert. Confirmed that he resides in [place] with his spouse, Maggie. He is independent at his baseline. P: DCP to continue to follow. He will have MRI today and work with the therapy team today. Patient should be able to go home when deemed medically stable. Roseline Forrest RN/Jack Machine Operator Discharge Planning/Care Management CM Discharge Assessment Start: 05/30/23 08:32 Freq: Status: Active Protocol: Document 05/30/23 08:32 (Rec: 05/30/23 08:33 [id number]) Discharge Planning Assessment Assigned Skid Man Roseline Forrest RN/Jack Machine Operator Advance Directives? No History Provided By Patient,Medical Record Prior Living Arrangements House Household Members spouse Type of transporation used prior to Drives own vehicle admit Comment Was driving until he started having some visual disturbances in his eye. Independent with ADL's Yes Is patient alert and oriented? Yes Caregiver for Another No Barriers to Discharge No Discharge Plan Home Transportation Arrangement Spouse Referrals Initiated None needed Whiteboard Updated in Patient Room with Yes name and ext. # of Skid Man Review Status In Process Next Review Type Continued Stay Review
--- NOTE | 2023-05-30 09:25 | PT.IIE ---
Current Diagnoses Transient cerebral ischemic attack, unspecified (05/30/23) Physical Therapy Inpatient Evaluation/Re-Eval M1 PT/OT-IP Prior Functional Status Start: 05/30/23 08:41 Freq: NEEDED Status: Active Protocol: Document 05/30/23 09:25 AW (Rec: 05/30/23 09:33 AW [id number]) Medical Review Prior Functional Status Medical History Reviewed Yes Communication WNL. An effective verbal communicator. Pt is KAW. Mobility and Gait Independent Activities of Daily Living and IADL's Independent including driving Social History Household Members spouse Living Arrangements House Employment Status Retired Additional Social History Comment Worked as an electrocardiogram technician. M2 PT-IP Current Condition Start: 05/30/23 08:41 Freq: NEEDED Status: Active Protocol: Document 05/30/23 09:25 AW (Rec: 05/30/23 09:44 AW [id number]) Physical Therapy Current Condition Current Condition Evaluation Date 05/30/23 Treatment Diagnosis TIA vs CVA; right eye vision changes Onset Date 05/29/23 M3 PT-IP Subjective Start: 05/30/23 08:41 Freq: NEEDED Status: Active Protocol: Document 05/30/23 09:25 AW (Rec: 05/30/23 09:44 AW [id number]) Subjective Physical Therapy Visit Type Type Initial Evaluation Visit Start Time 09:05 Visit Stop Time 09:25 Total Visit Minutes 20 Physical Therapy Visit Comments Patient Comments Pt reports vision has returned to normal (for him). He states he has right lower extremity pain and swelling, largely in the front of his leon. Therapy Pain Assessment Pain When Pain Assessed During Mobility Pain Present Pain Present Denied Pain M4 PT-IP Mobility and Gait Start: 05/30/23 08:41 Freq: NEEDED Status: Active Protocol: Document 05/30/23 09:25 AW (Rec: 05/30/23 09:44 AW [id number]) PT-Bed Mobility Assessment Supine to Sit Supine to Sit Independent Scooting Scooting to Edge of Bed Independent PT-Transfer Assessment Sit to and From Stand Sit to and from Stand Independent Equipment Transfer Assistive Device None Transfers Transfer Destination Bed,Chair Transfer Technique Stand Step Pivot Transfer Ability Level of Assist Independent Comments Mobility Comments Pt demonstrated all bed mobility and transfers without assist of any kind. Gait Assessment Gait Gait Assistance Required: Independent Distance (Feet) 300 Assistive Devices Assistive Device None Gait Deviations General Gait Pattern Within Normal Limits Comments Gait Comments See Functional Gait Assessment below. Stair Climbing Assessment Evaluation Level of Assist On Stairs Independent Devices Stair Climbing Assistive Devices None Technique/Endurance Stair Climbing Direction Ascend and Descend Number of Steps Climbed 3 Query Text: Stair Climbing Set # Repetitions (reps) 2 PT-Balance Assessment Sitting Balance and Reactions Static Sitting Balance Ability Normal Dynamic Sitting Balance Ability Normal Standing Balance and Reactions Static Standing Balance Ability Normal Dynamic Standing Balance Ability Good Device Used no AD Balance Tests Romberg WNL EO and EC Tandem Standing 5 sec Comments Other Balance Tests/Deviations/Treatment Withstands perturbations in : standing. Functional Assessments Functional Tests Functional Gait Assessment Other Functional Tests Performed FGA: Single point deducted for gait with eyes closed. Three points deducted for NBOS. M5 PT-IP Objective Assessments Start: 05/30/23 08:41 Freq: NEEDED Status: Active Protocol: Document 05/30/23 09:25 AW (Rec: 05/30/23 09:44 AW [id number]) Orientation Orientation/Cognition Level of Alertness Alert Orientation Name,Date,Day of Week,Place, Situation Language Function Ability No Deficits Noted Safety Awareness Understands Safety Issues Memory Description No Deficits Noted Gross Range of Motion Upper Extremity ROM Assessment Within Functional Limits Lower Extremity ROM Assessment Within Functional Limits Strength Upper Extremity Strength Assessment Within Functional Limits Lower Extremity Strength Assessment Within Functional Limits Comments Strength Comments Grossly 5/5 all extremities Coordination Assessment Gross Coordination Gross Coordination WNL Assessment Finger to Nose Test Normal Performance Pronation/Supination Test Normal Performance Foot Tapping Test Normal Performance Sensation Assessment Sensation Gross Sensation WNL Muscle Tone Muscle Tone WNL Yes Other Assessments Other Other Assessments Ocular motor exam notable for possible weakness of the medial rectus muscle. Right eye tends to rest in abduction , moving weakly in the nasal direction. During cover/ uncover testing, pt exhibits exophoria of the right eye. Pt reports he sees one and a half of everything which is his baseline. No visual field deficits noted. Vestibular screen unremarkable except for very slight lag with head thrust test which is possibly age-related. M6 PT-IP Treatment Start: 05/30/23 08:41 Freq: NEEDED Status: Active Protocol: Document 05/30/23 09:25 AW (Rec: 05/30/23 10:52 AW [id number]) Physical Therapy Treatment Other Treatments Other Treatment Performed Educated pt on signs and symptoms of CVA as well as need for immediate treatment if observed. M7 PT-IP Assessment and Plan Start: 05/30/23 08:41 Freq: NEEDED Status: Active Protocol: Document 05/30/23 09:25 AW (Rec: 05/30/23 10:52 AW [id number]) PT Summary Assessment and Plan Summary Assessment Summary Amber is a 67 yo man seen for PT evaluation while admitted for CVA rule out secondary to sudden onset right eye darkness which resolved within five minutes. Pt states this has happened before. He has seen a retinal specialist with no relevant findings. Pt denies other symptoms. CT head was unremarkable. CTA found high grade stenosis of the right proximal internal carotid artery. PMH includes MN, HTN, HLD, DM2. Pt is independent in all regards at baseline. CLOF: Pt was found lying in bed, willing to participate with PT. Pt has positive ocular motor findings as described above but no deficits in visual valdes. Pt' s vision is back to baseline per patient report and it does not interfere with his dynamic balance. Pt demonstrates entirely independent gait and transfers . Functional Gait Assessment score of 26/30 is consistent with norms for age-matched peers. PT recommends pt discharge home with assist once medically stable. No further acute PT needs anticipated. Frequency of Treatment Frequency Of Treatment Discharge Recommendations To Nursing Amount of Assist Needed Independent Discharge Recommendations PT Discharge Recommendations Home with Assistance Transportation Needs at Discharge Private Vehicle
[2023-05-30] MEDS: CLOPIDOGREL 75 MG TABLET PO (09:52)
[2023-05-30] MEDS: SODIUM CHLORIDE 0.9% FLUSH 10 ML IV (09:52)
--- NOTE | 2023-05-30 10:25 | PC.NURSE ---
Addendum entered by Izzy Scott R.N. 05/30/23 12:46: Patients blood sugar 134 at lunch, Cozaar not given to patient per Doctor. BP 118/52 and pulse 46. Just down to MRI.. Original Note: Assess-Patient is alert and oriented x4. He has ambulated in the halls with physical therapy and did well. He will have his MRI sometime today. Paperwork is filled out. Patient states that he has had r.lower extremity weakness and vision problems for almost a month now. He is able to read, smile is symmetrical, and his speech is clear. He is able to lift both of his legs and arms up and states that his vision is about the same. Resting now. Diastolic pressure in the mid 40s. Will recheck patients blood pressure and if it is up, will give patient his losartan.
--- NOTE | 2023-05-30 10:34 | OT.IPNOTE ---
OT eval and treat received. Chart reviewed and discussed case in rounds and with P.T. Per P.T. pt is now at his baseline with no needs. Will discharge order per P.T. recommendation.
--- NOTE | 2023-05-30 13:02 | DI.MRI.S_ITS ---
PROCEDURE: MR HEAD/BRAIN WO CON INDICATIONS: TIA/CVA TECHNIQUE: Noncontrast axial T1 spin echo, axial T2 fast spin echo, sagittal and axial FLAIR, coronal T2 fast spin echo, axial gradient echo, axial diffusion and ADC through the brain. COMPARISON: [facility], CT, CT STROKE, 05/29/2023, 22:01. FINDINGS: Image quality: Excellent. CSF Spaces: Basal cisterns are patent. No extra-axial fluid collections. Ventricles are normal in size and shape. Brain: No intracranial masses or hemorrhage. Dee/white matter interface is normal. Brainstem appears normal. Diffusion-weighted sequence is unremarkable without evidence of acute infarct. Normal intravascular flow voids are present. Skull and face: Calvarium has normal marrow signal. Orbits appear normal. Bilateral intraocular lens replacements noted. Sinuses: Sinuses and mastoids are clear. IMPRESSION: Unremarkable MRI of the brain. No acute infarct, hemorrhage or mass lesion Approved by: Wilver Carter M.D. on 05/30/2023 at 12:58
--- NOTE | 2023-05-30 20:25 | P.DS_ITS ---
History of Present Illness History of Present Illness Date Patient Seen: 05/30/23 Time Patient Seen: 02:05 Chief complaint: visual disturbance Narrative: Per admitting physician: 67 year old male with history of DM, HTN, HLD here after have a minute episode where his right visual field went guthrie. He states it started suddenly and endly suddenly and he has had 4 episodes of same. He has been evaluated by opthalmology (retina specialist) who could find nothing wrong and told him in the future he needed to go to the ED to rule out a CVA. He was seen in the ED and CT/CTA did not show acute CVA or large vessel occlusion. Neurology was consulted and recommend DAPT with plavix load and MRI/ECHO to complete work up. He states he is fine now and had no weakness, speech issue or dysphagia during the event which occurred at the dinner table tonight. His brother has had similar episodes attributed to glaucoma. He further denies recent fever, illness, nausea, vomiting, chest pain or dyspnea. Discharge Providers Provider Date of admission: 05/30/23 00:40 Discharge Date: 05/30/23 Primary care physician: Dyan aBrahona MD Consults: 05/30/23 00:41 Consult to Occupational Therapy Evaluate & Treat Comment: Physician Instructions: Evaluate and treat Consult to Physical Therapy Evaluate & Treat Comment: Physician Instructions: Evaluate and Treat Discharge provider: Archie Mckeon MD Summary Hospital Course Discharge Diagnosis: 1. Visual disturbance 2. Carotid stenosis 3. Hypertension 4. Hyperlipidemia 5. Diabetes Hospital Course: Mr. Oliva was admitted for a repeated, transient visual change where he was noted to have graying on his vision. This resolved. MRI showed no stroke. ECHO with no acute process. CTA did show high grade stenosis of right internal carotid artery. He was discharged on dual anti-platelet therapy. He should follow up with his PCP within one week and consider referral for intervention for his carotid stenosis. Exam Vital Signs (past 8 hours): Oxygen Delivery Method Room Air Oxygen Flow Rate 0 Narrative Exam Narrative: GEN: no acute distress CV: bradycardic PULM: clear bilaterally NEURO: no focal deficitis noted Objective Labs 05/29/23 21:59 05/30/23 05:45 Labs: Laboratory Results - last 24 hr 05/29/23 05/29/23 05/29/23 21:59 21:59 21:59 WBC 8.8 RBC 4.52 Hgb 13.9 Hct 40.8 L MCV 90.2 MCH 30.8 MCHC 34.2 RDW 14.8 Plt Count 160 Neut % (Auto) 55.3 Lymph % (Auto) 34.5 Sanders % (Auto) 6.0 Eos % (Auto) 4.0 Baso % (Auto) 0.2 Neut # (Auto) 4800 Lymph # (Auto) 3000 Sanders # (Auto) 500 Eos # (Auto) 400 Baso # (Auto) 0 PT 13.2 H INR 1.2 APTT 28 Sodium 139 Potassium 4.0 Chloride 106 Carbon Dioxide 23 BUN 20 Creatinine 1.10 Estimated GFR > 60 BUN/Creatinine Ratio 18.2 Glucose 129 H Calcium 8.9 Magnesium Total Bilirubin 0.7 AST 26 ALT 21 Alkaline Phosphatase 38 Total Creatine Kinase 108 Troponin I < 0.012 Total Protein 6.9 Albumin 4.2 Globulin 2.7 Albumin/Globulin Ratio 1.6 Triglycerides Cholesterol LDL Cholesterol, Calc HDL Cholesterol Urine Color Urine Appearance Urine pH Ur Specific [place] Urine Protein Urine Glucose (UA) Urine Ketones Urine Occult Blood Urine Nitrate Urine Bilirubin Urine Urobilinogen Ur Leukocyte Esterase Urine RBC Urine WBC Ur Squamous Epith Cells Urine Bacteria Ur Culture Indicated? U Opiates 300ng/mL cut Ur Oxycodone Screen Urine Methadone Screen Ur Barbiturates Screen U Tricyclic Antidepress Ur Phencyclidine Scrn Ur Amphetamines Screen U Methamphetamines Scrn Ur MDMA Scrn (Ecstasy) U Benzodiazepines Scrn Urine Cocaine Screen U Marijuana (THC) Screen Ethyl Alcohol < 10 SARS-CoV-2 (PCR) 05/29/23 05/29/23 05/29/23 22:20 23:40 23:40 WBC RBC Hgb Hct MCV MCH MCHC RDW Plt Count Neut % (Auto) Lymph % (Auto) Sanders % (Auto) Eos % (Auto) Baso % (Auto) Neut # (Auto) Lymph # (Auto) Sanders # (Auto) Eos # (Auto) Baso # (Auto) PT INR APTT Sodium Potassium Chloride Carbon Dioxide BUN Creatinine Estimated GFR BUN/Creatinine Ratio Glucose Calcium Magnesium Total Bilirubin AST ALT Alkaline Phosphatase Total Creatine Kinase Troponin I Total Protein Albumin Globulin Albumin/Globulin Ratio Triglycerides Cholesterol LDL Cholesterol, Calc HDL Cholesterol Urine Color Yellow Urine Appearance Clear Urine pH 5.0 Ur Specific [place] 1.015 Urine Protein Negative Urine Glucose (UA) 3+ H Urine Ketones Trace H Urine Occult Blood Negative Urine Nitrate Negative Urine Bilirubin Negative Urine Urobilinogen 0.2 Ur Leukocyte Esterase Negative Urine RBC None seen Urine WBC None seen Ur Squamous Epith Cells 0-1 /hpf Urine Bacteria None seen Ur Culture Indicated? Cult not indicated U Opiates 300ng/mL cut Negative Ur Oxycodone Screen Negative Urine Methadone Screen Negative Ur Barbiturates Screen Negative U Tricyclic Antidepress Negative Ur Phencyclidine Scrn Negative Ur Amphetamines Screen Negative U Methamphetamines Scrn Negative Ur MDMA Scrn (Ecstasy) Negative U Benzodiazepines Scrn Negative Urine Cocaine Screen Negative U Marijuana (THC) Screen Negative Ethyl Alcohol SARS-CoV-2 (PCR) Negative 05/30/23 05/30/23 05:45 05:45 WBC RBC Hgb Hct MCV MCH MCHC RDW Plt Count Neut % (Auto) Lymph % (Auto) Sanders % (Auto) Eos % (Auto) Baso % (Auto) Neut # (Auto) Lymph # (Auto) Sanders # (Auto) Eos # (Auto) Baso # (Auto) PT INR APTT Sodium 139 Potassium 4.6 Chloride 106 Carbon Dioxide 26 BUN 20 Creatinine 1.08 Estimated GFR > 60 BUN/Creatinine Ratio 18.5 Glucose 106 Calcium 8.7 Magnesium 2.1 Total Bilirubin AST ALT Alkaline Phosphatase Total Creatine Kinase Troponin I Total Protein Albumin Globulin Albumin/Globulin Ratio Triglycerides 97 Cholesterol 101 L LDL Cholesterol, Calc 46 HDL Cholesterol 36 L Urine Color Urine Appearance Urine pH Ur Specific [place] Urine Protein Urine Glucose (UA) Urine Ketones Urine Occult Blood Urine Nitrate Urine Bilirubin Urine Urobilinogen Ur Leukocyte Esterase Urine RBC Urine WBC Ur Squamous Epith Cells Urine Bacteria Ur Culture Indicated? U Opiates 300ng/mL cut Ur Oxycodone Screen Urine Methadone Screen Ur Barbiturates Screen U Tricyclic Antidepress Ur Phencyclidine Scrn Ur Amphetamines Screen U Methamphetamines Scrn Ur MDMA Scrn (Ecstasy) U Benzodiazepines Scrn Urine Cocaine Screen U Marijuana (THC) Screen Ethyl Alcohol SARS-CoV-2 (PCR) [facility], [facility] Social History household members: spouse Smoking Status: Never smoker substance use type: does not use Discharge Plan Discharge Plan Patient Disposition: Home Provider Discharge Comment: Mr. Oliva came in to the hospital with guthrie vision. He did not have a stroke. He does have some narrowing of the arteries in his neck. He should be on aspirin and plavix. Discharge orders & Medications Prescriptions: New clopidogrel 75 mg Tablet 75 mg PO DAILY Qty: 30 0RF Continued metformin 1,000 mg tablet 1,000 mg PO BID losartan 25 mg tablet 50 mg PO BID nitroglycerin 0.4 mg tablet, sublingual 0.4 mg sublingual PRN PRN (Reason: Chest Pain) rosuvastatin 20 mg tablet 20 mg PO ONCE PM Glyxambi 25-5 mg tablet 1 tab PO DAILY aspirin 81 mg Capsule 81 mg PO DAILY Follow up/Referrals: Dyan Barahona MD [Primary Care Provider] - 1 Week (grayed vision) Diet/Activity/Treatments Diet: Carb-consistent/Diabetic Visit Report/Discharge Packet Instructions: Strokes: Prevention (Alternative Therapy), DI for Stroke- Ischemic, Clopidogrel Stand Alone Forms: Patient Portal/API, Stroke Signs & Symptoms Discharge Data Primary Care Provider: Dyan Barahona Attending Provider: Emilia Granger Admit Date/Time: 05/30/23 00:40 Discharges patient from system. Discharge Date/Time: 05/30/23 15:30
== END 2023-05-30 15:30 | disposition home or self-care (01) ==
LOC: ED 05-30 00:35 → AC 05-30 00:41
PROVIDERS: Admitting Provider Internal Medicine; Emergency Provider Emergency Medicine; PCP Internal Medicine; Referring Provider Emergency Medicine; Visit Provider Internal Medicine
DX: H53.9 Unspecified visual disturbance (principal); I65.21 Occlusion and stenosis of right carotid artery; R29.700 NIHSS score 0; I10 Essential (primary) hypertension; E78.5 Hyperlipidemia, unspecified; E11.9 Type 2 diabetes mellitus without complications; Z79.84 Long term (current) use of oral hypoglycemic drugs
CPT/HCPCS: 36415; 70450; 70496; 70498; 70551; 71045; 80048; 80053; 80061; 80305; 80320; 81001; 81003; 82550; 82962; 83735; 84484; 85025; 85610; 85730; 87635; 93005; 93306; 97162; 99285; C9803; G0378; Q9967

== ENCOUNTER 2024-05-01 09:55 | Day surgery (SDC) | payer OTHER, SELFPAY ==
[2023-05-30 02:26] VITALS: BMI 33.2
--- NOTE | 2024-05-01 | PATH_ITS ---
[facility] Accession Number: [id number] No. of containers..02 Tissue . 01 Material submitted: . PART A: colon - TRANSVERSE POLYP PART B: colon - ASCENDING COLON POLYP . 01 Diagnosis: Part A: TRANSVERSE POLYP: Tubular adenoma. . Part B: ASCENDING COLON POLYP: Tubular adenoma. STO 05/03/2024 1125 Local . 01 Electronically signed: . Stephen An MD, Pathologist NPI- [id number] . 01 Gross description: . Part A: TRANSVERSE POLYP: Received in formalin is 1 fragment(s) of fuentes, soft tissue measuring 0.5 x 0.4 x 0.4 cm submitted entirely in 1 cassette(s) . Part B: ASCENDING COLON POLYP: Received in formalin is 1 fragment(s) of fuentes, soft tissue measuring 0.4 x 0.4 x 0.2 cm submitted entirely in 1 cassette(s) /JORDON 05/03/2024 1125 Local . 01 Pathologist provided ICD-10: D12.2, D12.3 . 01 CPT . 859749, 722608 Specimen Comment: A courtesy copy of this report has been sent to [phone] Performed at: [address] [facility] [address], [place], [place] [id number] MD Stephen An MD Phone: [phone]
[2024-05-01 10:16] VITALS: BP 169/83; PULSE 70; RESP 18; TEMP 36.5; O2SAT 97
[2024-05-01] MEDS: LACTATED RINGERS 1,000 ML 42 ML IV (10:26)
--- NOTE | 2024-05-01 10:31 | P.HP_ITS ---
History of Present Illness History of Present Illness Date Patient Seen: 05/01/24 Time Patient Seen: 10:32 Chief complaint: Dx Colonoscopy w/poss bx Narrative: 68-year-old man here for diagnostic colonoscopy positive Cologuard or fit test. Last colonoscopy 10 years ago normal. No family history of colon cancer. No abdominal concerns today. [facility] Social History household members: spouse Smoking Status: Never smoker substance use type: does not use Meds Home Medications and Allergies Home Medications Medication Instructions Recorded Confirmed Type aspirin 81 mg capsule 81 mg PO DAILY 05/06/23 05/01/24 History empagliflozin 25 mg-linagliptin 5 1 tab PO DAILY 05/06/23 05/01/24 History mg tablet (Glyxambi) losartan 25 mg tablet 50 mg PO BID 05/06/23 05/01/24 History metformin 1,000 mg tablet 1,000 mg PO BID 05/06/23 05/01/24 History nitroglycerin 0.4 mg sublingual 0.4 mg sublingual PRN PRN Chest 05/06/23 05/01/24 History tablet Pain rosuvastatin 20 mg tablet 20 mg PO ONCE PM 05/06/23 05/01/24 History Allergies Allergy/AdvReac Type Severity Reaction Status Date / Time erythromycin base Allergy Verified 05/01/24 10:07 Exam Vital Signs (past 8 hours): - 05/01/24 10:16 Temperature 97.7 F Pulse Rate 70 Respiratory Rate 18 Blood Pressure 169/83 H Pulse Oximetry 97 Oxygen Delivery Method Room Air Oxygen Flow Rate 0 Oxygen Delivery Method Room Air Oxygen Flow Rate 0 Narrative Exam Narrative: General adult man alert oriented no acute distress Chest nonlabored respiration Extremities warm well perfused Assessment & Plan Assessment & Plan narrative: Colonoscopy indicated for a positive Cologuard. Technical details were discussed. Risks, benefits, alternatives explained. Risks including but not limited to myocardial infarction, aspiration, bleeding, pain, missed lesion, incomplete examination, need for further radiographic studies, intestinal injury, and need for major abdominal surgery were discussed. All questions were answered to their satisfaction, and they are in agreement with this plan. Time-Based Coding :: [TOTAL MINUTES] spent with patient and on the chart (including review of chart, obtaining history, exam, reviewing outside data, placing orders, documenting exam and treatment plan, and counseling patient) on [DATE].
[2024-05-01 11:09] VITALS: BP 90/57; PULSE 63; RESP 15; TEMP 37.1; O2SAT 95
--- NOTE | 2024-05-01 11:11 | P.OP.COLON_ITS ---
Operative Date/Time/Diagnoses Date of procedure: 05/01/24 Time of procedure: 11:12 Pre-op diagnosis: Positive Cologuard Post-op diagnosis: other (Colonic polyps x2) Procedure & Clinicians Study performed: Diagnostic colonoscopy Same procedure as scheduled: Yes Indications: Positive Cologuard Surgeon: Temo Abbott Procedure Notes Procedure in detail: The history and physical was performed/updated and the patient is ASA class is 2. The procedure was discussed in detail with the patient. Potential risks complications including infection, bleeding, missed diagnosis, perforation, need for surgery, and were explained. Their questions were answered and informed consent was obtained. Patient was brought to the procedure room and placed standard monitoring equipment. The patient's vital signs were monitored continuously throughout the entire procedure. Prior to starting time-out was performed. The patient was placed in the left lateral recumbent position. Procedural sedation was administered by anesthesia. Examination began with a thorough inspection of the perianal area there was no evidence of fissures, fistulae, external hemorrhoids or cutaneous malignancy. The colonoscopy scope was then placed into the anal canal and was advanced to the cecum, which was identified by the ileocecal valve, the appendiceal orifice and the confluence of the taenia. The scope was then slowly withdrawn examining colon thoroughly in all directions, irrigating it of any residual stool. The scope was retroflexed within the rectum The patient tolerated the procedure well. They will be discharged once criteria are met. The prep was of good/excellent quality. The withdrawl time was 12 minutes. FINDINGS * Ascending colon polyp-3 mm removed with cold snare * Transverse colon polyp 5 mm removed with cold snare * Diverticulosis-mild Specimen(s): other (Ascending and transverse colonic polyps) Impression: Colonic polyps x2 Post-procedure Plan for aftercare: Follow-up is dependent on pathology findings likely 5 years Disposition: same day surgery
[2024-05-01 11:14] VITALS: BP 103/78; PULSE 64; RESP 13; O2SAT 97
[2024-05-01 11:19] VITALS: BP 149/72; PULSE 63; RESP 14; TEMP 36.8; O2SAT 96
== END 2024-05-01 11:36 | disposition home or self-care (01) ==
PROVIDERS: PCP Internal Medicine; Referring Provider Surgery; Visit Provider Surgery
PROC: 0DJD8ZZ Inspection of Lower Intestinal Tract, Via Natural or Artificial Opening Endoscopic (ICD-10-PCS; CPT 45378; principal; 2024-05-01 10:45)
DX: Z12.11 Encounter for screening for malignant neoplasm of colon (principal); R19.5 Other fecal abnormalities; K57.30 Diverticulosis of large intestine without perforation or abscess without bleeding; D12.3 Benign neoplasm of transverse colon; D12.2 Benign neoplasm of ascending colon
CPT/HCPCS: 45385; J2704

== ENCOUNTER → 2024-11-20 11:50 | Outpatient (CLI) | payer MEDICARE, OTHER, SELFPAY ==
[2023-05-30 02:26] VITALS: BMI 33.2
--- NOTE | 2024-11-20 11:53 | DI.US.S_ITS ---
PROCEDURE: US ABD AORTA ANEURYSM SCREEN INDICATIONS: SCREENING TECHNIQUE: Real time scanning was performed of the aorta and iliac arteries, with image documentation. COMPARISON: None. FINDINGS: Aorta: Proximal aortic diameter measures 2.7 cm. Mid-aorta measures 1.5 cm. Distal aortic diameter is 1.3 cm. Iliac arteries: Right common iliac artery measures 0.8 cm. Left common iliac artery measures 1.0 cm. IMPRESSION: No abdominal aortic aneurysm. Mild ectasia of the proximal aorta. Recommend 5 year follow-up ultrasound Dictated by: Chapincito Plascencia M.D. on 11/20/2024 at 13:40 Approved by: Chapincito Plascencia M.D. on 11/20/2024 at 13:41
== END ==
PROVIDERS: PCP Internal Medicine; Referring Provider Internal Medicine Cardiovascular Disease; Visit Provider Internal Medicine Cardiovascular Disease
DX: Z13.6 Encounter for screening for cardiovascular disorders (principal); I77.811 Abdominal aortic ectasia; Z87.891 Personal history of nicotine dependence
CPT/HCPCS: 76706

== ENCOUNTER 2025-01-07 13:18 | Emergency (ER) | payer MEDICARE, OTHER, SELFPAY ==
[2023-05-30 02:26] VITALS: BMI 33.2
[2025-01-07] VITALS (16 sets, daily range): BP systolic 129–187; BP diastolic 62–74; PULSE 46–54; RESP 11–23; TEMP 36.5; O2SAT 98–100; BMI 33.3
--- NOTE | 2025-01-07 13:40 | DI.RAD.S_ITS ---
PROCEDURE: XR CHEST 1V INDICATIONS: chest pain TECHNIQUE: One view of the chest was acquired. COMPARISON: [facility], CR, XR CHEST 1V, 05/30/2023, 0:28. [facility], CR, XR CHEST 1V, 11/07/2019, 18:20. FINDINGS: Surgical changes and devices: None. Lungs and pleura: Lungs are clear. No pleural effusions or pneumothorax. Mediastinum: Mediastinal contours appear normal. Heart size is normal. Bones and chest wall: No suspicious bony lesions. Overlying soft tissues appear unremarkable. IMPRESSION: No acute cardiopulmonary abnormality is seen. Dictated by: Gregorio Dean M.D. on 01/07/2025 at 13:59 Approved by: Gregorio Dean M.D. on 01/07/2025 at 14:00
--- NOTE | 2025-01-07 13:48 | EKG_ITS ---
[address] [address] Test Date: 2025-01-07 Pat Name: Amber Oliva Department: Room: Gender: Male [employer] Eng[employer]: ZULMA : 1955 Requested By: Order Number: [id number] Reading MD: Geovanny Reyes Measurements Intervals Stevenson Rate: 55 P: -1 GA: 162 QRS: -13 QRSD: 150 T: 20 QT: 482 QTc: 461 Interpretive Statements Sinus bradycardia with occasional premature ventricular complexes Right bundle branch block Electronically Signed On 01-07-2025 15:51:30 PDT by Geovanny Reyes
[2025-01-07 14:10] LABS: Hematocrit 26.6 % (41-53); Hemoglobin 9.2 g/dL (13.5-17.5); Mean Corpuscular HGB Conc 34.4 % (30-36); Mean Corpuscular Hemoglobin 34.1 PG (26-34); Mean Corpuscular Volume 99.1 fL (80-100); Platelet Count 136 X10^3/uL (150-400); Red Blood Cell Count 2.69 X10^6/uL (4.5-5.9); Red Cell Distribution Width 18.7 % (11.6-14.8); White Blood Cell Count 2.7 X10^3/uL (4.5-11.0)
[2025-01-07 14:12] LABS: Add Manual Diff / Slide Review YES
[2025-01-07 14:15] LABS: INR 1.1 (0.9-1.3); Prothrombin Time 12.7 SECONDS (9.4-12.5)
[2025-01-07] MEDS: ASPIRIN 81 MG CHEW TAB 324 MG PO (14:16)
[2025-01-07 14:18] LABS: PTT Partial Thromboplastin Tim 25 SECONDS (25.1-36.5)
[2025-01-07 14:19] LABS: Alanine Aminotransferase 18 IU/L (<50); Albumin 4.3 g/dL (3.5-5.0); Albumin Globulin Ratio 1.5 (1.0-2.8); Alkaline Phosphatase 37 U/L (38-126); Aspartate Aminotransferase 24 IU/L (17-59); BUN Creatinine Ratio 19.1 (6-22); Bilirubin Total 1.2 mg/dL (0.2-1.3); Blood Urea Nitrogen 26 mg/dL (9-20); Carbon Dioxide 21 mmol/L (22-32); Chloride 106 mmol/L (98-107); Creatine Kinase 84 U/L (55-170); Estimated Glomerular Filt Rate 56 mL/min (>60); Globulin 2.9 g/dL (1.7-4.1); Glucose 106 mg/dL (80-110); HEMOLYSIS < 15 (0-50); Lipase 226 U/L (23-300); Potassium 4.4 mmol/L (3.4-5.1); Sodium 137 mmol/L (137-145); Total Protein 7.2 g/dL (6.3-8.2)
[2025-01-07 14:28] LABS: Anisocytosis 2+; Neutrophils Absolute Manual 297 /uL (3000-5900); Total Cells Counted 100
[2025-01-07 14:31] LABS: NT-proBNP (BNP-Adult 18+) 273 pg/mL (<125); Troponin I < 0.012 ng/mL (0.01-0.034)
--- NOTE | 2025-01-07 15:55 | PC.NURSE ---
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 In august of 2023 he had carotid endarterectomy, in 2019 he had an CO with four stents. Patient reports no chest pain, no sob, no headache. at bedside states that hes not as sharp as he used to be, more recently hes had some episodes of confusion, in department he is a/ox4. Patient states that he noticed some photophobia in his right eye, also numbness in right forehead. Patient is LAMS negative
--- NOTE | 2025-01-07 15:55 | ED.DIZZY ---
HPI - Dizziness General Chief Complaint: Dizziness Stated Complaint: Dizzy , Weak ,blood pressure 122/49 Time Seen by Provider: 01/07/25 15:55 Source: patient, family, RN notes reviewed and old records reviewed Mode of arrival: Wheelchair Limitations: no limitations History of Present Illness HPI Narrative: 69-year-old male history of hypertension, dyslipidemia, diabetes, coronary artery disease with cardiac stents in 2019 on aspirin 81 mg daily. Patient presents with complaint of feeling sort of dizzy for the past year states it is typically more when he gets upright but can happen even when he sitting. States today had an episode that is lasted little bit longer. He states he can usually sort of power through it. States he just felt like he was going to fall asleep he did not syncopized but thought he might. He denies any new shortness of breath but notes some slowly increasing exertional dyspnea over time. Patient states no chest pain or pressure. No nausea or vomiting. No diaphoresis. Slightly constipated but has bowel movements. No black or bloody stools. Has had nocturia. Denies any swelling of extremities. Patient is on aspirin 81 mg daily, metformin 1000 mg, rosuvastatin 20 mg, losartan 50 mg b.i.d., Glyxambi 25/5 mg daily. He has had prior right carotid endarterectomy, multiple polyps removed and cardiac stents x4 in 2019. States allergies to erythromycin and aluminum dioxide. Former smoker, occasional alcohol, no recreational drugs. He does not think he has had labs and a year to had 1 thing checked with his physician in the past year. Related Data Home Medications Medication Instructions Recorded Confirmed aspirin 81 mg capsule 81 mg PO DAILY 05/06/23 05/01/24 empagliflozin 25 mg-linagliptin 5 1 tab PO DAILY 05/06/23 05/01/24 mg tablet (Glyxambi) losartan 25 mg tablet 50 mg PO BID 05/06/23 05/01/24 metformin 1,000 mg tablet 1,000 mg PO BID 05/06/23 05/01/24 nitroglycerin 0.4 mg sublingual 0.4 mg sublingual PRN PRN Chest 05/06/23 05/01/24 tablet Pain rosuvastatin 20 mg tablet 20 mg PO ONCE PM 05/06/23 05/01/24 Previous Rx's Medication Instructions Recorded levofloxacin 750 mg tablet 750 mg PO DAILY 10 days #10 tabs 01/07/25 Allergies Allergy/AdvReac Type Severity Reaction Status Date / Time aluminum hydroxide Allergy Rash Verified 01/07/25 14:19 azithromycin Allergy Hives Verified 01/07/25 14:19 Review of Systems Review of Systems ROS Unobtainable: All systems reviewed & are unremarkable except as noted in HPI and below Patient History Social History household members: spouse Smoking Status: Former smoker substance use type: does not use Smoking Status: Former smoker alcohol intake frequency: holidays/special occasions only Exam Narrative Exam Narrative: GENERAL: Alert and oriented x three, male in mild distress, pale HEENT: Head normocephalic, atraumatic, EOMI, pupils reactive, face symmetric, moist mucous membranes NECK: Supple, full range of motion CARDIOVASCULAR: Bradycardic but regular rate and rhythm without murmurs, rubs or gallops. No JVD. No edema bilateral lower extremities. RESPIRATORY: Breath sounds equal bilaterally, no wheezes rales or rhonchi. No tachypnea or accessory muscle use. ABDOMEN: Soft, nontender. Normoactive bowel sounds all 4 quadrants. No guarding or rebound, rigidity, no mass : No CVA tenderness EXTREMITIES: Normal range of motion, no clubbing or edema. Neurovascularly intact NEUROLOGICAL: Cranial nerves II through XII grossly intact. Moving all extremities SKIN: Warm, dry, no petechiae, no rashes or lesions. Initial Vital Signs Initial Vital Signs: Vital Signs Pulse Rate 50 L 01/07/25 13:26 Blood Pressure 153/67 H 01/07/25 13:26 Pulse Oximetry 98 01/07/25 13:26 Course Orders Ordered: Discontinued Medications Aspirin (Aspirin 81 Mg Chew Tab) 324 mg PO NOW ONE Stop: 01/07/25 13:40 Last Admin: 01/07/25 14:16 Dose: 243 mg Documented By: [facility] Levofloxacin (Levofloxacin 250 Mg Tablet) 750 mg PO NOW ONE Stop: 01/07/25 18:27 Last Admin: 01/07/25 19:06 Dose: 750 mg Documented By: [facility] Vital Signs Vital signs: Vital Signs - 8 hr 01/07/25 13:26 01/07/25 13:26 01/07/25 13:30 Temperature Pulse Rate 50 L 51 L Respiratory Rate 20 Blood Pressure 153/67 H Pulse Oximetry 98 100 Oxygen Delivery Method 01/07/25 13:30 01/07/25 13:37 01/07/25 14:00 Temperature 97.7 F Pulse Rate 50 L 54 L Respiratory Rate 20 23 Blood Pressure 159/70 H 153/67 H Pulse Oximetry 100 100 Oxygen Delivery Method Room Air 01/07/25 14:00 01/07/25 14:30 01/07/25 14:31 Temperature Pulse Rate 49 L 50 L Respiratory Rate 15 18 Blood Pressure 170/73 H Pulse Oximetry 100 100 Oxygen Delivery Method 01/07/25 14:31 01/07/25 15:00 01/07/25 15:00 Temperature Pulse Rate 48 L Respiratory Rate 14 Blood Pressure 132/62 129/62 Pulse Oximetry 100 Oxygen Delivery Method 01/07/25 15:30 01/07/25 15:30 01/07/25 16:00 Temperature Pulse Rate 49 L 47 L Respiratory Rate 16 11 L Blood Pressure 145/63 H Pulse Oximetry 100 100 Oxygen Delivery Method Room Air 01/07/25 16:00 01/07/25 16:30 01/07/25 16:30 Temperature Pulse Rate 52 L 52 L Respiratory Rate 20 20 Blood Pressure 137/63 Pulse Oximetry 100 100 Oxygen Delivery Method 01/07/25 16:30 01/07/25 17:00 01/07/25 17:00 Temperature Pulse Rate 51 L Respiratory Rate 13 Blood Pressure 157/70 H 152/70 H Pulse Oximetry 100 Oxygen Delivery Method MDM - Dizziness Lab Data 01/07/25 14:01 01/07/25 14:01 Labs: Lab Results 01/07/25 01/07/25 Range/Units 14:01 18:45 WBC 2.7 L (4.5-11.0) X10^3/uL RBC 2.69 L (4.5-5.9) X10^6/uL Hgb 9.2 L (13.5-17.5) g/dL Hct 26.6 L (41-53) % MCV 99.1 (80-100) fL MCH 34.1 H (26-34) PG MCHC 34.4 (30-36) % RDW 18.7 H (11.6-14.8) % Plt Count 136 L (150-400) X10^3/uL Neut % (Auto) Not Reportable Lymph % (Auto) Not Reportable Miner % (Auto) Not Reportable Eos % (Auto) Not Reportable Baso % (Auto) Not Reportable Lymph # (Auto) Not Reportable Miner # (Auto) Not Reportable Baso # (Auto) Not Reportable Total Counted 100 Seg Neutrophils % 11.0 L (38-70) % Lymphocytes % (Manual) 82.0 H (25-45) % Monocytes % (Manual) 6.0 (2-11) % Eosinophils % (Manual) 1.0 L (2-4) % Neutrophils # (Manual) 297 L (0515-9666) /uL RBC Morphology See below Anisocytosis 2+ H PT 12.7 H (9.4-12.5) SECONDS INR 1.1 (0.9-1.3) APTT 25 L (25.1-36.5) SECONDS Sodium 137 (137-145) mmol/L Potassium 4.4 (3.4-5.1) mmol/L Chloride 106 (98-107) mmol/L Carbon Dioxide 21 L (22-32) mmol/L BUN 26 H (9-20) mg/dL Creatinine 1.36 H (0.66-1.25) mg/dL Estimated GFR 56 L (>60) mL/min BUN/Creatinine Ratio 19.1 (6-22) Glucose 106 (80-110) mg/dL Calcium 9.0 (8.4-10.2) mg/dL Magnesium 2.0 (1.6-2.3) mg/dL Total Bilirubin 1.2 (0.2-1.3) mg/dL AST 24 (17-59) IU/L ALT 18 (<50) IU/L Alkaline Phosphatase 37 L (38-126) U/L Lactate Dehydrogenase 157 (120-246) U/L Total Creatine Kinase 84 (55-170) U/L Troponin I < 0.012 (0.01-0.034) ng/mL NT-Pro-B Natriuret Pep 273 H (<125) pg/mL Total Protein 7.2 (6.3-8.2) g/dL Total Protein (PEP) 5.9 L (6.0-8.5) g/dL Albumin 4.3 (3.5-5.0) g/dL Albumin (PEP) 3.4 (2.9-4.4) g/dL Globulin 2.9 (1.7-4.1) g/dL Albumin/Globulin Ratio 1.5 (1.0-2.8) Albumin/Globulin (PEP) 1.4 (0.7-1.7) Ywdfb-6-Kmkyccsth 0.2 (0.0-0.4) g/dL Zwyun-2-Dsfdvonhv 0.7 (0.4-1.0) g/dL Beta Globulins 0.7 (0.7-1.3) g/dL Nqzr-8-Odojvmebzdpng 2.1 (0.6-2.4) mg/L Gamma Globulins 0.9 (0.4-1.8) g/dL Gamma Glob/Tot Protein 2.5 (2.2-3.9) g/dL M-Deshaun Not observed (Not Observed) g/dL Lipase 226 (23-300) U/L Serum IgA 207 (61-437) mg/dL Serum IgG 875 (603-1613) mg/dL Serum IgM 98 (20-172) mg/dL DEBORA Interpretation Comment (.) Leuk/Lym Sample Descrip Comment (.) Leuk/Lym Comment Comment (.) L/L Sign Pathologist Comment (.) CLL Flow Interpret Comment (.) Leuk/Lymph Case # TNP Leuk/Lymph Ind for Study Comment (.) Leuk/Lymph Flow Com Comment (.) CLL (FISH) Add Info TNP Ref Lab Notation Comment (.) ECG Data Attestation: I personally reviewed and interpreted this ECG as follows: Prior ECG tracings: available for review Interpretation: Sinus bradycardia occasional PVC rate of 55 AK 162 QRS of 150 QTC of 461. Patient has prior from 05/29/2023 overall appears similar sinus bradycardia with a right bundle-branch block. MDM Narrative Medical decision making narrative: EKG shows sinus bradycardia, premature complexes right bundle-branch block Labs show white count 2.7 hemoglobin of 9.2 platelets of 136 patient was predominance of lymphocytes. Priors from 2022 show normal hemoglobin, platelets and white count. INR today is 1.1, creatinine is 1.36 up from 1.08 and 2022 BUN 26 with a CO2 of 21 otherwise normal electrolytes glucose of 106 alk-phos is 37 otherwise normal LFTs troponins less than 0.012 with a BNP of 273. Chest x-ray shows no acute change Review of patient's prior visits patient appears to run 40s to 50s for his heart rate into 2020. Does not appear to have pancytopenia with low white count, hemoglobin and platelets. This maybe contributing to his symptoms. Patient's vitals are consistent with his priors. Page out to oncology @ [phone], spoke with Dr. Hinton with Oncology. Requested beta 2 microglobulin, CLL fish, IgA VH, immunofixation, LDH, flow cytometry and protein electrophoresis. We would like to see patient with in the next week has for urgent referral we will potentially get a bone marrow biopsy at that point. Does ask if we can start patient on Levaquin for 10 days as his absolute count of neutrophils a slow. Spoke with patient's primary care with [facility], he was familiar with the patient we will help with referral process. Discharge Plan Departure Patient Disposition: Home Clinical Impression: Pancytopenia, Creatinine elevation Activity Restrictions/Additional Instructions: Follow up with Oncology, your white count, hemoglobin and platelets are low, your creatinine is slightly elevated today compared to your priors in 2022. I spoke with the oncologist they have sent several other labs some of these maybe resulted in the next week. Call tomorrow to set up follow up with Oncology. Contacts included below. I did also speak with your primary care physician if you require referral they can help with that. Your white blood cell count is low enough today we are going to start she was on a prophylactic antibiotic. Take once daily until gone. This antibiotic can sometimes cause pain or discomfort in the tendons if you note that share this with your physician and stop it. Prescription was sent to [facility] in [place]. Please return if you develop fevers, new chest pain or shortness of breath, lightheadedness or passing out, new swelling of your extremities or any other new or concerning changes. Prescriptions: New levofloxacin 750 mg tablet 750 mg PO DAILY 10 Days Qty: 10 0RF No Action metformin 1,000 mg tablet 1,000 mg PO BID losartan 25 mg tablet 50 mg PO BID nitroglycerin 0.4 mg tablet, sublingual 0.4 mg sublingual PRN PRN (Reason: Chest Pain) rosuvastatin 20 mg tablet 20 mg PO ONCE PM Glyxambi 25-5 mg tablet 1 tab PO DAILY aspirin 81 mg Capsule 81 mg PO DAILY Referrals: Dyan Beard MD [Primary Care Provider] - Charlie Hinton MD [Physician] - Stand Alone Forms: Patient Portal/API/Survey
[2025-01-07] MEDS: levoFLOXacin 250 MG TABLET 750 MG PO (19:06)
[2025-01-07 19:22] LABS: Lactate Dehydrogenase 157 U/L (120-246)
[2025-01-10 12:41] LABS: Immunoglobulin A, Serum 207 mg/dL (61-437); Immunoglobulin G,Serum 875 mg/dL (603-1613); Immunoglobulin M, Serum 98 mg/dL (20-172)
[2025-01-10 14:09] LABS: Albumin 3.4 g/dL (2.9-4.4); Alpha-1-Globulin 0.2 g/dL (0.0-0.4); Alpha-2-Globulin 0.7 g/dL (0.4-1.0); Gamma Globulin 0.9 g/dL (0.4-1.8); Globulin Total 2.5 g/dL (2.2-3.9); Protein, Total 5.9 g/dL (6.0-8.5)
[2025-01-10 19:36] LABS: Beta-2-Microglobulin 2.1 mg/L (0.6-2.4)
[2025-01-11 16:36] LABS: Cells Analyzed Comment: (.); Cells Counted Comment: (.); Interpretation Comment: (.); Specimen Type Comment: (.)
== END 2025-01-07 19:12 | disposition home or self-care (01) ==
PROVIDERS: Emergency Provider Emergency Medicine; PCP Internal Medicine
DX: D61.818 Other pancytopenia (principal); R79.89 Other specified abnormal findings of blood chemistry; K59.00 Constipation, unspecified; R00.1 Bradycardia, unspecified; I45.10 Unspecified right bundle-branch block; R07.9 Chest pain, unspecified
CPT/HCPCS: 36415; 71045; 80053; 81263; 82232; 82550; 82784; 83615; 83690; 83735; 83880; 84155; 84165; 84484; 85007; 85025; 85610; 85730; 86334; 88184; 93005; 99284